=== PATIENT | female | born 1940 | race Caucasian/White ===

== ENCOUNTER → 2016-06-28 | Outpatient (CLI) | payer MEDICARE, BC | LOC: BHSO 09:59 | DX: F31.81 Bipolar II disorder (principal) ==

== ENCOUNTER → 2016-12-27 | Outpatient (CLI) | payer MEDICARE, BC | LOC: BHSO 09:59 | DX: F31.74 Bipolar disorder, in full remission, most recent episode manic (principal) ==

== ENCOUNTER → 2017-04-27 | Outpatient (CLI) | payer MEDICARE, BC | LOC: BHSO 10:43 | DX: F31.73 Bipolar disorder, in partial remission, most recent episode manic (principal) ==

== ENCOUNTER → 2017-10-09 | Outpatient (CLI) | payer MEDICARE, BC | LOC: MC.RAD 13:11 | DX: Z12.31 Encounter for screening mammogram for malignant neoplasm of breast (principal) ==

== ENCOUNTER → 2017-10-26 | Outpatient (CLI) | payer MEDICARE, BC ==
[~2017-10-26] MED LIST: ATIVAN 0.50.5 MG/TAB PO; LITHIUM 30300 MG/CAP PO; LITHIUM CA150 MG/CAP PO; MIRTAZAPINE7.5 MG PO; PLAVIX 75MG TAB75 MG PO; SYNTHROID0.075 MG/T PO
== END ==
LOC: BHSO 10:57
DX: F33.1 Major depressive disorder, recurrent, moderate (principal)
CPT/HCPCS: G0463

== ENCOUNTER → 2017-11-03 | Outpatient (REF) ==
[~2017-11-03] MED LIST changes: +ASPIRIN E.C. 8181 MG PO; +LAMICTAL 25MG T25 MG PO; +NICODERM C7 MG/PATCH TD; +OMNICEF 300MG300 MG PO; +SEROQUEL 2525 MG/TAB PO; +SYNTHROID0.05 MG/TA PO; +TYLENOL 325MG325 MG PO
[2017-11-03 14:11] LABS: BASO # 0.1 (0.0-0.2); BASO % 1.1 % (0.0-2.0); EOS # 0.4 (0.0-0.7); EOS % 4.8 % (0-4.0); GRAN # 5.7 (1.4-6.5); GRAN % 69.5 % (42.2-75.2); HEMOGLOBIN 11.9 g/dl (12.5-16.0); LYMPH # 1.4 (1.2-3.4); LYMPH % 17.6 % (20.0-51.0); MEAN CELL VOLUME 97 fl (80.0-100.0); MEAN CORPUSCULAR HEMOGLOBIN 31 pg (27.0-31.0); MEAN CORPUSCULAR HGB CONC 31 g/dl (33.0-37.0); MEAN PLATELET VOLUME 11.4 fl (7.4-10.4); MONO # 0.5 (0.1-0.6); MONO % 6.6 % (1.7-9.3); PLATELET COUNT 284 K/mm3 (130-400); REDCELL DISTRIBUTION WIDTH-CV 13.4 % (11.5-14.5)
[2017-11-03 14:38] LABS: ALBUMIN 3.5 gm/dL (3.5-5.0); BILIRUBIN,TOTAL 0.4 mg/dL (0.0-1.0); CALCIUM 11.3 mg/dL (8.4-10.2); CREATININE, serum 1.13 mg/dL (0.52-1.25); TOTAL PROTEIN 6.7 gm/dL (6.4-8.2)
== END ==
LOC: ZLAB.STJ 13:58 → EDBD 13:58
PROVIDERS: Family Medicine
DX: Z01.89 Encounter for other specified special examinations (principal)

== ENCOUNTER → 2017-11-07 | Outpatient (REF) | LOC: EDBD 13:48 → ZLAB.STJ 13:48 | DX: F03.90 Unspecified dementia, unspecified severity, without behavioral disturbance, psychotic disturbance, mood disturbance, and anxiety (principal) ==

== ENCOUNTER → 2017-11-07 | Outpatient (CLI) | payer MEDICARE, BC | LOC: EDBD 13:01 → BHSO 13:01 | DX: F31.81 Bipolar II disorder (principal) | CPT/HCPCS: G0463 ==

== ENCOUNTER → 2017-11-09 | Outpatient (REF) | LOC: ZLAB.STJ 09:51 | DX: Z01.89 Encounter for other specified special examinations (principal) ==

== ENCOUNTER → 2017-11-09 | Outpatient (REF) | LOC: ZLAB.WCH 10:04 | DX: Z01.89 Encounter for other specified special examinations (principal) ==

== ENCOUNTER → 2018-01-03 | Outpatient (CLI) | payer MEDICARE, BC | LOC: BHSO 10:39 | DX: F31.76 Bipolar disorder, in full remission, most recent episode depressed (principal) | CPT/HCPCS: G0463 ==

== ENCOUNTER 2018-02-18 08:43 | Emergency (ER) | payer MEDICARE, BC ==
[~2018-02-18] VITALS: Ht 162.6 cm; Wt 53.6 kg
[2018-02-18 08:47] VITALS: TEMP 97.9
[2018-02-18 09:34] LABS: COLLECTION METHOD CATHETER
[2018-02-18 09:38] LABS: BASO # 0.1 (0.0-0.2); BASO % 0.5 % (0.0-2.0); EOS # 0.2 (0.0-0.7); EOS % 1.7 % (0-4.0); GRAN # 8.6 (1.4-6.5); HEMATOCRIT 39.6 % (37.0-47.0); HEMOGLOBIN 12.5 g/dl (12.5-16.0); LYMPH # 0.8 (1.2-3.4); LYMPH % 7.8 % (20.0-51.0); MEAN CELL VOLUME 99 fl (80.0-100.0); MEAN CORPUSCULAR HEMOGLOBIN 31 pg (27.0-31.0); MEAN CORPUSCULAR HGB CONC 32 g/dl (33.0-37.0); MEAN PLATELET VOLUME 10.6 fl (7.4-10.4); MONO # 0.5 (0.1-0.6); MONO % 4.6 % (1.7-9.3); PLATELET COUNT 212 K/mm3 (130-400); RED BLOOD COUNT 3.99 M/mm3 (4.10-5.30); REDCELL DISTRIBUTION WIDTH-CV 12.9 % (11.5-14.5)
[2018-02-18 09:45] LABS: PH 7 (5-8); SQUAMOUS EPITHELIAL None Seen /hpf; URINE APPEARANCE Clear; URINE BACTERIA None Seen /hpf; URINE BILIRUBIN Negative (NEGATIVE); URINE BLOOD Negative (NEGATIVE); URINE COLOR Straw; URINE GLUCOSE Negative (NEGATIVE); URINE KETONE Negative (NEGATIVE); URINE LEUKOCYTE ESTERASE Negative (NEGATIVE); URINE NITRATE Negative (NEGATIVE); URINE PROTEIN(semi-quant) Negative (NEGATIVE); URINE RBC 0-2 /hpf; URINE UROBILINOGEN Negative (NEGATIVE)
[2018-02-18 09:47] LABS: ALANINE AMINOTRANSFERASE 38 U/L (9-52); ALBUMIN 4.3 gm/dL (3.5-5.0); ALKALINE PHOSPHATASE 87 U/L (50-136); ANION GAP 8 mmol/L (7-16); AST,SGOT 41 U/L (15-37); BILIRUBIN,TOTAL 0.4 mg/dL (0.0-1.0); BLOOD UREA NITROGEN 16 mg/dL (7-17); CALCIUM 10.6 mg/dL (8.4-10.2); CARBON DIOXIDE 25 mmol/L (22-30); CHLORIDE 108 mmol/L (98-107); CREATININE, serum 0.99 mg/dL (0.52-1.25); GLUCOSE 82 mg/dL (74-106); MAGNESIUM 2.3 mg/dL (1.6-2.3); PHOSPHOROUS 2.9 mg/dL (2.5-4.5); POTASSIUM 4.2 mmol/L (3.4-5.0); SODIUM 141 mmol/L (137-145); TOTAL PROTEIN 7.8 gm/dL (6.4-8.2)
[2018-02-18 10:00] LABS: TROPONIN-I < 0.012 ng/mL (0.000-0.034)
[2018-02-18 10:15] LABS: LITHIUM 0.5 mmol/L (0.6-1.2)
[2018-02-18 12:27] VITALS: BP 130/72; PULSE 78
== END 2018-02-18 12:29 | disposition home or self-care (01) ==
LOC: COL.ER 08:43
PROVIDERS: Emergency Medicine
DX: S22.089A Unspecified fracture of T11-T12 vertebra, initial encounter for closed fracture (principal); F31.9 Bipolar disorder, unspecified; I50.9 Heart failure, unspecified; K59.00 Constipation, unspecified; M54.5 Low back pain; F17.210 Nicotine dependence, cigarettes, uncomplicated; Z79.82 Long term (current) use of aspirin; Z86.73 Personal history of transient ischemic attack (TIA), and cerebral infarction without residual deficits; W01.0XXA Fall on same level from slipping, tripping and stumbling without subsequent striking against object, initial encounter
CPT/HCPCS: J2405; J7050

== ENCOUNTER → 2018-03-28 | Outpatient (CLI) | payer MEDICARE, BC | LOC: BHSO 10:44 | DX: F31.76 Bipolar disorder, in full remission, most recent episode depressed (principal) | CPT/HCPCS: G0463 ==

== ENCOUNTER 2018-04-11 09:30 | Outpatient (RCR) | payer MEDICARE, BC ==
[2018-04-12] MEDS ORDERED: ASPIRIN 81M81 MG/TA2 PO (16:52)
[2018-04-12] MEDS ORDERED: ATIVAN 1MG T1 MG/TAB PO (16:53)
[2018-04-12] MEDS ORDERED: LAMICTAL 100MG100 MG PO (16:53)
== END 2018-07-02 | disposition home or self-care (01) ==
LOC: WSC
DX: M54.40 Lumbago with sciatica, unspecified side (principal)
CPT/HCPCS: G8978-GP; G8979-GP

== ENCOUNTER 2018-04-12 15:46 | Emergency (ER) | payer MEDICARE, BC ==
[~2018-04-12] VITALS: Ht 162.6 cm; Wt 54.1 kg
[2018-04-12 15:50] VITALS: TEMP 98.5
[2018-04-12 16:24] LABS: BASO # 0.1 (0.0-0.2); BASO % 0.6 % (0.0-2.0); EOS % 0.2 % (0-4.0); GRAN # 10.9 (1.4-6.5); GRAN % 86.8 % (42.2-75.2); HEMATOCRIT 39.9 % (37.0-47.0); HEMOGLOBIN 12.7 g/dl (12.5-16.0); LYMPH # 0.9 (1.2-3.4); LYMPH % 7.5 % (20.0-51.0); MEAN CELL VOLUME 96 fl (80.0-100.0); MEAN CORPUSCULAR HEMOGLOBIN 31 pg (27.0-31.0); MEAN CORPUSCULAR HGB CONC 32 g/dl (33.0-37.0); MEAN PLATELET VOLUME 10.9 fl (7.4-10.4); MONO # 0.6 (0.1-0.6); MONO % 4.6 % (1.7-9.3); PLATELET COUNT 231 K/mm3 (130-400); RED BLOOD COUNT 4.17 M/mm3 (4.10-5.30)
[2018-04-12 16:38] LABS: ALBUMIN 4.4 gm/dL (3.5-5.0); BILIRUBIN,TOTAL 0.7 mg/dL (0.0-1.0); CALCIUM 11.8 mg/dL (8.4-10.2); CREATININE, serum 0.99 mg/dL (0.52-1.25); POTASSIUM 4.4 mmol/L (3.4-5.0); TOTAL PROTEIN 7.7 gm/dL (6.4-8.2)
[2018-04-12 16:52] LABS: LITHIUM 0.6 mmol/L (0.6-1.2)
[2018-04-12] MEDS ORDERED: ASPIRIN 81M81 MG/TA2 PO (16:52)
[2018-04-12] MEDS ORDERED: ATIVAN 1MG T1 MG/TAB PO (16:53)
[2018-04-12] MEDS ORDERED: LAMICTAL 100MG100 MG PO (16:53)
[2018-04-12 16:58] LABS: MAGNESIUM 2.1 mg/dL (1.6-2.3)
[2018-04-12 17:17] LABS: TSH w REFLEX 1.89 uIU/mL (0.465-4.680)
[2018-04-12 17:32] LABS: COLLECTION METHOD CATHETER
[2018-04-12 17:37] LABS: PH 7 (5-8); SQUAMOUS EPITHELIAL None Seen /hpf; URINE APPEARANCE Clear; URINE BACTERIA Rare /hpf; URINE BILIRUBIN Negative (NEGATIVE); URINE BLOOD Negative (NEGATIVE); URINE COLOR Straw; URINE GLUCOSE Negative (NEGATIVE); URINE KETONE Negative (NEGATIVE); URINE LEUKOCYTE ESTERASE Negative (NEGATIVE); URINE NITRATE Negative (NEGATIVE); URINE PROTEIN(semi-quant) Negative (NEGATIVE); URINE RBC 0-2 /hpf; URINE UROBILINOGEN Negative (NEGATIVE)
[2018-04-12 18:33] VITALS: BP 161/75; PULSE 81
== END 2018-04-12 21:44 | disposition short-term general hospital (02) ==
LOC: COL.ER 15:46
PROVIDERS: Emergency Medicine
DX: S09.90XA Unspecified injury of head, initial encounter (principal); S22.080A Wedge compression fracture of T11-T12 vertebra, initial encounter for closed fracture; M62.82 Rhabdomyolysis; R26.89 Other abnormalities of gait and mobility; Z91.81 History of falling; F03.90 Unspecified dementia, unspecified severity, without behavioral disturbance, psychotic disturbance, mood disturbance, and anxiety; Z86.73 Personal history of transient ischemic attack (TIA), and cerebral infarction without residual deficits; Z79.82 Long term (current) use of aspirin; W19.XXXA Unspecified fall, initial encounter
CPT/HCPCS: J3010; J7030

== ENCOUNTER → 2018-09-25 | Outpatient (CLI) | payer MEDICARE, BC ==
[~2018-09-25] MED LIST changes: +ASPIRIN 81M81 MG/TA2 PO; +ATIVAN 1MG T1 MG/TAB PO; +LAMICTAL 100MG100 MG PO
== END ==
LOC: MC.RAD 13:10
DX: Z12.31 Encounter for screening mammogram for malignant neoplasm of breast (principal)

== ENCOUNTER → 2018-09-28 | Outpatient (CLI) | payer MEDICARE, BC | LOC: BHSO 10:58 | DX: F31.76 Bipolar disorder, in full remission, most recent episode depressed (principal) | CPT/HCPCS: G0463 ==

== ENCOUNTER → 2019-03-27 | Outpatient (CLI) | payer MEDICARE, BC | LOC: BHSO 09:57 | DX: F31.72 Bipolar disorder, in full remission, most recent episode hypomanic (principal) | CPT/HCPCS: G0463 ==

== ENCOUNTER → 2019-04-30 | Outpatient (CLI) | payer MEDICARE, BC ==
[~2019-04-30] MED LIST changes: +MELATIN 3 MG-11 TAB PO; +NICODERM C21 MG/PATC TD; +NORVASC2.5 MG PO; +ZOFRAN ODT4 MG PO
== END ==
LOC: BHSO 15:22
DX: F31.74 Bipolar disorder, in full remission, most recent episode manic (principal)
CPT/HCPCS: G0463

== ENCOUNTER 2019-05-04 16:25 | Emergency (ER) | payer MEDICARE, BC ==
[~2019-05-04] VITALS: Ht 162.6 cm; Wt 48.6 kg
[~2019-05-04 16:25] MED LIST changes: -MELATIN 3 MG-11 TAB PO; -NICODERM C21 MG/PATC TD; -NORVASC2.5 MG PO; -ZOFRAN ODT4 MG PO
[2019-05-04 17:30] VITALS: BP 148/93; PULSE 76; TEMP 97.8
== END 2019-05-04 17:37 | disposition home or self-care (01) ==
LOC: COL.ER 16:25
DX: S01.81XA Laceration without foreign body of other part of head, initial encounter (principal); E03.9 Hypothyroidism, unspecified; F17.210 Nicotine dependence, cigarettes, uncomplicated; W20.8XXA Other cause of strike by thrown, projected or falling object, initial encounter; Y92.009 Unspecified place in unspecified non-institutional (private) residence as the place of occurrence of the external cause

== ENCOUNTER 2019-05-06 17:42 | Emergency (ER) | payer MEDICARE, BC ==
[~2019-05-06] VITALS: Ht 157.5 cm; Wt 54.5 kg
[2019-05-06 17:45] VITALS: TEMP 98.9
[2019-05-06 18:38] LABS: BASO # 0.1 (0.0-0.2); BASO % 0.7 % (0.0-2.0); EOS # 0.2 (0.0-0.7); EOS % 2.5 % (0-4.0); GRAN # 6.7 (1.4-6.5); HEMATOCRIT 41.1 % (37.0-47.0); HEMOGLOBIN 13.4 g/dl (12.5-16.0); LYMPH # 1.8 (1.2-3.4); LYMPH % 18.8 % (20.0-51.0); MEAN CELL VOLUME 95 fl (80.0-100.0); MEAN CORPUSCULAR HEMOGLOBIN 31 pg (27.0-31.0); MEAN CORPUSCULAR HGB CONC 33 g/dl (33.0-37.0); MEAN PLATELET VOLUME 11.4 fl (7.4-10.4); MONO # 0.5 (0.1-0.6); MONO % 5.8 % (1.7-9.3); PLATELET COUNT 226 K/mm3 (130-400); RED BLOOD COUNT 4.34 M/mm3 (4.10-5.30); REDCELL DISTRIBUTION WIDTH-CV 13.1 % (11.5-14.5)
[2019-05-06 18:48] LABS: ALBUMIN 4.8 gm/dL (3.5-5.0); BILIRUBIN,TOTAL 0.6 mg/dL (0.0-1.0); CALCIUM 12.1 mg/dL (8.4-10.2); CREATININE, serum 1.14 (0.52-1.25); POTASSIUM 4.2 mmol/L (3.4-5.0); TOTAL PROTEIN 8.6 gm/dL (6.4-8.2)
[2019-05-06] MEDS ORDERED: NORVASC2.5 MG PO (20:52)
[2019-05-07 03:56] LABS: COLLECTION METHOD CATHETER
[2019-05-07 04:15] LABS: TRICYCLIC ANTIDEPRESS URINE NEGATIVE
[2019-05-07 04:16] LABS: PH 6 (5-8); SQUAMOUS EPITHELIAL 0-2 /hpf; URINE APPEARANCE Clear; URINE BACTERIA Rare /hpf; URINE BILIRUBIN Negative (NEGATIVE); URINE BLOOD Negative (NEGATIVE); URINE COLOR Straw; URINE GLUCOSE Negative (NEGATIVE); URINE KETONE Negative (NEGATIVE); URINE LEUKOCYTE ESTERASE Negative (NEGATIVE); URINE NITRATE Negative (NEGATIVE); URINE PROTEIN(semi-quant) Negative (NEGATIVE); URINE RBC 0-2 /hpf; URINE UROBILINOGEN Negative (NEGATIVE)
[2019-05-07 07:26] LABS: ALBUMIN 3.7 gm/dL (3.5-5.0); BILIRUBIN,TOTAL 0.2 mg/dL (0.0-1.0); CREATININE, serum 0.95 (0.52-1.25); POTASSIUM 3.8 mmol/L (3.4-5.0); TOTAL PROTEIN 6.6 gm/dL (6.4-8.2)
--- NOTE | 2019-05-07 08:32 | NUR ---
nutrition services worker spoke with nurse and physician regarding discharge planning for patient. Patient lives alone and has Interim private pay caregivers. Worker contacted Denise, plastic surgery manager, at Dr Bartholomew's office and advised of concerning behaviors and ED visit. Dr Bartholomew has moved up patient's appointment to today at 11:30. Denise contacted caregiver, Amisha, and confirmed that she will transport home and bring to Dr Bartholomew's appointment today. Pyschiatrist has changed some medications which may have contributed to patient's confusional state. Son called ED nurse and is aware of the above information and states he will arrive to [place] in a couple of days. Patient will discharge home with caregivers today, from the ED.
[2019-05-07 08:58] VITALS: BP 151/91; PULSE 72
== END 2019-05-07 08:58 | disposition home or self-care (01) ==
LOC: COL.ER 17:42
PROVIDERS: Emergency Medicine; Family Medicine
DX: F31.9 Bipolar disorder, unspecified (principal); E86.0 Dehydration; I50.9 Heart failure, unspecified; F17.210 Nicotine dependence, cigarettes, uncomplicated; Z79.82 Long term (current) use of aspirin
CPT/HCPCS: J7030; J7120

== ENCOUNTER 2019-05-11 15:59 | Inpatient (IN) | payer MEDICARE, BC ==
[~2019-05-11] VITALS: Ht 162.6 cm; Wt 43.2 kg
[2019-05-11] VITALS (41 sets, daily range): BP systolic 140; BP diastolic 76; PULSE 86; TEMP 97.5; O2SAT 72–100
[~2019-05-11 15:59] MED LIST changes: +NORVASC2.5 MG PO
[2019-05-11 17:13] LABS: ARTERIAL BLD GAS O2 SATURATION 95.4 % (92-100); ARTERIAL BLD GAS TCO2 CT 26.3; ARTERIAL BLOOD GAS PCO2 42.2 mmHg (35-45); ARTERIAL BLOOD GAS PO2 83.2 mmHg (80-100); ARTERIAL BLOOD GAS pH 7.39 (7.35-7.45)
[2019-05-11 17:18] LABS: BASO # 0.1 (0.0-0.2); BASO % 0.4 % (0.0-2.0); EOS % 0.1 % (0-4.0); GRAN # 14.3 (1.4-6.5); GRAN % 84.7 % (42.2-75.2); HEMATOCRIT 41.6 % (37.0-47.0); HEMOGLOBIN 12.9 g/dl (12.5-16.0); LYMPH # 1.4 (1.2-3.4); LYMPH % 8.4 % (20.0-51.0); MEAN CELL VOLUME 98 fl (80.0-100.0); MEAN CORPUSCULAR HEMOGLOBIN 30 pg (27.0-31.0); MEAN CORPUSCULAR HGB CONC 31 g/dl (33.0-37.0); MEAN PLATELET VOLUME 11.5 fl (7.4-10.4); MONO % 5.9 % (1.7-9.3); PLATELET COUNT 243 K/mm3 (130-400); RED BLOOD COUNT 4.25 M/mm3 (4.10-5.30); REDCELL DISTRIBUTION WIDTH-CV 13.6 % (11.5-14.5)
[2019-05-11 17:29] LABS: ALBUMIN 4.3 gm/dL (3.5-5.0); BILIRUBIN,TOTAL 0.5 mg/dL (0.0-1.0); CALCIUM 12.4 mg/dL (8.4-10.2); CREATININE, serum 1.17 (0.52-1.25); POTASSIUM 3.9 mmol/L (3.4-5.0); TOTAL PROTEIN 7.8 gm/dL (6.4-8.2)
[2019-05-11 17:50] LABS: TRICYCLIC ANTIDEPRESS URINE NEGATIVE
[2019-05-11 17:57] LABS: MUCOUS Present /lpf; PH 7 (5-8); SQUAMOUS EPITHELIAL 0-2 /hpf; URINE APPEARANCE Hazy; URINE BACTERIA Moderate /hpf; URINE BILIRUBIN Negative (NEGATIVE); URINE BLOOD 1+ (NEGATIVE); URINE COLOR Yellow; URINE GLUCOSE Negative (NEGATIVE); URINE KETONE Negative (NEGATIVE); URINE LEUKOCYTE ESTERASE 3+ (NEGATIVE); URINE NITRATE Positive (NEGATIVE); URINE PROTEIN(semi-quant) Negative (NEGATIVE); URINE RBC 0-2 /hpf; URINE UROBILINOGEN Negative (NEGATIVE)
--- NOTE | 2019-05-11 20:00 | NUR ---
Received report from MARCOS Contreras.
[2019-05-11 21:38] LABS: CALCIUM 11.7 mg/dL (8.4-10.2); CREATININE, serum 1.22 (0.52-1.25); POTASSIUM 3.7 mmol/L (3.4-5.0)
--- NOTE | 2019-05-11 23:40 | NUR ---
Patient arrived to ICU room 6 at 2009 via ED stretcher. D5W is infusing to a site in the left forearm during arrival and patient is receiving O2 via nasal cannula at 4L. Upon initial assessment, patient's speech is confused although she does follow simple commands. Patient's initial BP is elevated, other vitals signs were within normal limits. Patient was 100% on 4L, so O2 was titrated to 2L and then off when saturation remained above 98%. Bruising is noted on her left hip area and her left upper arm; both bruises are yellowish in color. Patient's skin is dry and intact otherwise. Patient arrives wearing dentures, which are removed and oral care provided. A second IV site is initiated in the left wrist. Patient unable to answer questions regarding home medications at this time; will contact daughter Irma for clarification. Will continue to monitor.
[2019-05-11 23:49] LABS: THYROID STIMULATING HORMONE 0.46 uIU/mL (0.465-4.680)
[2019-05-12] VITALS (565 sets, daily range): BP systolic 114–169; BP diastolic 65–91; PULSE 88–116; TEMP 97.5–98.8; O2SAT 73–100
[2019-05-12 00:37] LABS: CALCIUM 11.3 mg/dL (8.4-10.2); CREATININE, serum 1.15 (0.52-1.25); POTASSIUM 3.7 mmol/L (3.4-5.0)
[2019-05-12 04:02] LABS: CREATININE, serum 1.11 (0.52-1.25); POTASSIUM 4.1 mmol/L (3.4-5.0)
--- NOTE | 2019-05-12 05:23 | NUR ---
Around 0400, patient became increasingly restless and agitated. Patient was removing gown and attempting to climb out of bed. Patient removed Coban wrap and IV in the left wrist. When attempting to reposition patient in bed, she began hitting and scratching at staff and yelling loudly. Trang notifed. Received orders for Ativan, which was administered. A sitter is currently present at the bedside. Will continue to monitor.
[2019-05-12 07:47] LABS: BASO # 0.1 (0.0-0.2); BASO % 0.3 % (0.0-2.0); EOS # 0.3 (0.0-0.7); EOS % 1.3 % (0-4.0); GRAN # 17.1 (1.4-6.5); HEMATOCRIT 40.1 % (37.0-47.0); HEMOGLOBIN 12.9 g/dl (12.5-16.0); LYMPH # 2.2 (1.2-3.4); LYMPH % 10.8 % (20.0-51.0); MEAN CELL VOLUME 97 fl (80.0-100.0); MEAN CORPUSCULAR HEMOGLOBIN 31 pg (27.0-31.0); MEAN CORPUSCULAR HGB CONC 32 g/dl (33.0-37.0); MEAN PLATELET VOLUME 11.1 fl (7.4-10.4); MONO # 0.9 (0.1-0.6); MONO % 4.3 % (1.7-9.3); PLATELET COUNT 229 K/mm3 (130-400); RED BLOOD COUNT 4.12 M/mm3 (4.10-5.30); REDCELL DISTRIBUTION WIDTH-CV 13.6 % (11.5-14.5)
[2019-05-12 07:56] LABS: CALCIUM 11.3 mg/dL (8.4-10.2); CREATININE, serum 1.13 (0.52-1.25); POTASSIUM 3.9 mmol/L (3.4-5.0)
--- NOTE | 2019-05-12 08:42 | NUR ---
Report given to MARCOS Sy.
[2019-05-12 09:37] LABS: CALCIUM 11.5 mg/dL (8.4-10.2); CREATININE, serum 1.13 (0.52-1.25); POTASSIUM 3.9 mmol/L (3.4-5.0)
--- NOTE | 2019-05-12 10:57 | NUR ---
Patient is currently resting in bed on her right side. She is wearing mits on her hands as it was reported that she was pulling INT sites out. She opens her eyes occasionally and to voice. She will speak but it is unintelligable. Had been using an external female catheter but as patient moves around frequently it has been ineffective so it has been removed and incontinence care is provided. She has even respirations. Is not alert and oriented. I did speak with daughter to obtain history and information on patient. Her daughter reports that she had independently traveled to see her in [place] over . Patient was reported to have been involved with dinner and was at her baseline. Daughter states that she had the decline after seeing psych and having her ativan discontinued and started on trazadone. It is reported that patient was started on lithium and ativan and this maintained her bipolar depression for some time. She does have interim home health providers where it is reported that she has a home health aide come to her house Monday-Monday and a nurse that sees patient Monday, Monday, Monday and they have noticed a change in patients demeanor since the medication change. Daughter reports that the home health aide noted that patient was in a "catatonic state" on evening where she was home sitting in the dark and wasnt speaking then Monday morning she was back to baseline. Daughter reports that patient told her that she will experience "episodes" where she feels that there is a film over her eyes and she is unable to walk or talk. These have been more frequent since . I did ask if the patient had a living will or power of contract attorney and the daughter reports that she is the financial power of contract attorney but she will check with the patients soap press feeder regarding medical. Daughter states that patient has wished to be a DNR but there is no documentation regarding this. The daughter wishes for patient to go to [facility] for rehab as the patient has been there before and done well. I did let social media marketing manager know this along with all the information provided.
--- NOTE | 2019-05-12 11:32 | NUR ---
SW received consult about patient status. Patient is currently unable to communicate fluidly. Patient is reported to have come in and was combative and physically violent toward staff. SW did not obtain an assessment. SW staffed with nurse about patient's mental history and gather information regarding family. Patient has an adult Dtr who resides in [facility], [place] . Sw made contact with DTR about patient. DTR has Financial POA and is attempting to get [facility] about Med-DPOA. DTR reports that the patient has a Nurse Aid (Amisha Alexander) from [facility] 5 days a week. Patient denied 24 hour care previously according to DTR. SEE Patient History on Mental Health Status-EXT. Patient also has an Adult son Gamaliel Johnston who is the EMR DPOA but the DTR reports that she can not get a hold of the brother. Phone Numbers Provided for Gamaliel Johnston at and . SW called all three numbers and the message box was full, not set up and no PII. No message left. DTR reports that the patient has been to [facility] in the past and they would choose that option again if possible. SW called [facility] to obtain a report, no answer from [facility]. SW left message. Additional information is unknown at this time. AMILCAR will continue to follow. Possible reports to APS. Infomation Handed off to Qc Manager.
[2019-05-12 11:41] LABS: COLLECTION METHOD CATHETER
--- NOTE | 2019-05-12 12:30 | NUR ---
Obained blood glucose level resulting in 55, did notify provider and due to sodium increase and blood glucose level the 1/2 NS is discontinued and D5 started at 75/hr.
[2019-05-12 12:55] LABS: CALCIUM 11.5 mg/dL (8.4-10.2); CREATININE, serum 1.1 (0.52-1.25); POTASSIUM 4.4 mmol/L (3.4-5.0)
--- NOTE | 2019-05-12 13:10 | NUR ---
Sodium has increased to 156, did notify provider, no changes to IV fluids.
--- NOTE | 2019-05-12 13:34 | NUR ---
Attempted to administer PO fluids to patient. Did give sip straight from a cup and she began to cough. Did try with a straw and patient was not comprehending what she was supposed to do.
[2019-05-12 14:04] LABS: PTH,INTACT 68.1 pg/mL (6.6-88.9)
--- NOTE | 2019-05-12 14:15 | NUR ---
Pt attempting to climb over side rails despite re-orientation strategies
[2019-05-12 15:31] LABS: CALCIUM 11.8 mg/dL (8.4-10.2); CREATININE, serum 1.19 (0.52-1.25)
--- NOTE | 2019-05-12 15:39 | NUR ---
MD Sofia notified of continued low Na level and continued alerted mental status. Orders recieved
[2019-05-12 18:55] LABS: CALCIUM 11.4 mg/dL (8.4-10.2); CREATININE, serum 1.18 (0.52-1.25); POTASSIUM 3.8 mmol/L (3.4-5.0)
--- NOTE | 2019-05-12 19:05 | NUR ---
Bedside report received from MARCOS Flannery
--- NOTE | 2019-05-12 20:00 | NUR ---
Patient is laying in bed resting with mitts on. She moves her arms and legs periodically and groans. Patient opens eyes to name, but does not respond to commands. Patient is found to have both legs kicked over the side of the bed and she is trying to move herself down to get up. Repositioned her in bed with assistance of MARCOS Silva. Pupils are reactive and equal. Assessment complete. Lungs are clear bilaterally with diminished bases. HR and rhythm are regular, patient is slightly tachycardic in the low 100's. Normal S1 and S2 heard. Bowel sounds active x4. Peripheral pulses are palpable. Patient is visibly shaking, but is warm to the touch and afebrile. Patient has multiple bruises on her hips, arms, and back. Nicotine patches are present on left shoulder. Patient has been incontinent of urine, patient given a bed bath and new sheets provided. Patient has no further needs at this time. Will continue to monitor. Call light within reach.
[2019-05-12 21:49] LABS: CALCIUM 11.2 mg/dL (8.4-10.2); CREATININE, serum 1.22 (0.52-1.25)
[2019-05-13] VITALS (828 sets, daily range): BP systolic 125–163; BP diastolic 78–90; PULSE 72–91; TEMP 97.8–98.9; O2SAT 66–100
--- NOTE | 2019-05-13 | NUR ---
Patient continues to rest in bed. Patient has been incontinent of urine, cleaned with personal cleansing cloths and new padding placed. Vitals obtained and remain stable. Patient does open her eyes to noise in the room and tracks this nurse as she walks around the bed. Patient asks "what happened". Explained that she was found at home confused and dehydrated. Patient nods her head in understanding. Assisted her with the blankets and repositioned for comfort. No further needs at this time. Will continue to monitor.
[2019-05-13 01:41] LABS: CALCIUM 11.2 mg/dL (8.4-10.2); CREATININE, serum 1.16 (0.52-1.25); POTASSIUM 4.2 mmol/L (3.4-5.0)
--- NOTE | 2019-05-13 03:45 | NUR ---
WHen going to reposition the patient, it is noted she is having abnormal flexion and extension with legs fully flexed and arms straight and unmoveable. Patient is not responsive to stimuli and she is visibly shaking. Notified ELIZABETH Costello who came to see the patient. Pupils are equal and reactive. Patient does not respond to any further stimuli. Order for STAT CT head.
--- NOTE | 2019-05-13 04:15 | NUR ---
Patient taken to CT by this nurse on portable monitor via bed with the assistance of Jose orthotic and prosthetic technician.
--- NOTE | 2019-05-13 04:24 | NUR ---
Return from CT at this time and patient placed back on unit monitoring equipment. Patient has started to be a little responsive to painful stimuli, but still remains postured.
[2019-05-13 04:38] LABS: ARTERIAL BLD GAS O2 SATURATION 96.3 % (92-100); ARTERIAL BLD GAS TCO2 CT 21.3; ARTERIAL BLOOD GAS BASE EXCESS -3.8 (-2-2); ARTERIAL BLOOD GAS HCO3 20.3 meq/L (22-26); ARTERIAL BLOOD GAS PCO2 33.9 mmHg (35-45); ARTERIAL BLOOD GAS PO2 83.7 mmHg (80-100)
--- NOTE | 2019-05-13 05:00 | NUR ---
Patient now fully extended in all extremities. Patient pulls against all movement and is rigid.
--- NOTE | 2019-05-13 06:00 | NUR ---
Patient is now responding to stimuli fully and opening her eyes. Patient is no longer extended and extremities can be moved.
[2019-05-13 06:10] LABS: BASO # 0.1 (0.0-0.2); BASO % 0.5 % (0.0-2.0); EOS # 0.3 (0.0-0.7); GRAN # 11.4 (1.4-6.5); GRAN % 76.3 % (42.2-75.2); HEMATOCRIT 41.6 % (37.0-47.0); HEMOGLOBIN 12.9 g/dl (12.5-16.0); LYMPH # 2.2 (1.2-3.4); LYMPH % 14.9 % (20.0-51.0); MEAN CELL VOLUME 101 fl (80.0-100.0); MEAN CORPUSCULAR HEMOGLOBIN 31 pg (27.0-31.0); MEAN CORPUSCULAR HGB CONC 31 g/dl (33.0-37.0); MEAN PLATELET VOLUME 12.3 fl (7.4-10.4); MONO # 0.8 (0.1-0.6); MONO % 5.6 % (1.7-9.3); PLATELET COUNT 242 K/mm3 (130-400); RED BLOOD COUNT 4.13 M/mm3 (4.10-5.30); REDCELL DISTRIBUTION WIDTH-CV 13.9 % (11.5-14.5)
[2019-05-13 06:26] LABS: CALCIUM 11.2 mg/dL (8.4-10.2); CREATININE, serum 1.16 (0.52-1.25); POTASSIUM 3.9 mmol/L (3.4-5.0)
--- NOTE | 2019-05-13 07:15 | NUR ---
Pt sleeping on side, respirations equal and unlabored, pt opens eyes to stimuli, does not follow commands. Vitals stable Tameka,nephrology social worker notified regarding inability to contact medical DPOA and inability for pt to make on decisions
--- NOTE | 2019-05-13 07:45 | NUR ---
Bedside report given to MARCOS Flannery
[2019-05-13 09:33] LABS: CALCIUM 10.9 mg/dL (8.4-10.2); CREATININE, serum 1.08 (0.52-1.25); POTASSIUM 3.7 mmol/L (3.4-5.0)
--- NOTE | 2019-05-13 09:40 | NUR ---
Hydroelectric Plant Technician was contacted by MARCOS Flannery who advised no one over the weekend was able to get in touch with patient's son but did get in touch with patient's daughter, Irma. AMILCAR reviewed DPOA-HC paperwork from 2016 that designates patient's sonGamaliel as DPOA-HC. AMILCAR attempted to contacted Gamaliel at [phone], which was the number listed on DPOA-HC paperwork and a man answered the phone stating SW had the wrong number. AMILCAR also called [phone] and could not leave a message because the mailbox is full. AMILCAR contacted Denise at [facility] who provided a phone number for patient's home health worker, Amisha ([phone]). Denise advised Amisha is listed as patient's Emergency Contact. Denise also faxed over current DPOA-HC paperwork that was completed in 2018 that designates patient's daughter, Irma as DPOA-HC. AMILCAR placed paperwork in patient chart. AMILCAR contacted Amisha who states patient's son, Gamaliel is aware patient is in hospital and the best number to contact for Gamaliel is [phone]. Amisha states she provides care to patient Monday-Monday 8:00am-4:00pm and also checks on her periodically. AMILCAR contacted Irma who reports she is concerned about her mother's rapid deterioration and stated her mother was able to travel to [place], [place] last month with no difficulties. Irma states she and Amisha believe there have been some issues with a recent medication change made by patient's psychiatrist. Irma states before patient was admitted to hospital, she was trying to set up Physical and Occupational Therapies with patient's home health agency. Irma states she is unsure what is going on with her brother, Gamaliel and worries he may be in some legal trouble. According to Irma, Gamaliel lives in [place], [place]. AMILCAR provided update to Prudencio RODRÍGUEZ about DPOA-HC. SW to continue to follow to ensure safe discharge.
[2019-05-13 12:22] LABS: CREATININE, serum 1.04 (0.52-1.25); POTASSIUM 3.8 mmol/L (3.4-5.0)
[2019-05-13 16:02] LABS: CALCIUM 10.9 mg/dL (8.4-10.2); CREATININE, serum 0.99 (0.52-1.25); POTASSIUM 4.4 mmol/L (3.4-5.0)
--- NOTE | 2019-05-13 16:15 | NUR ---
MD Sofia notified continued improvement in serum Sodium and that Altered mentation status remains the same - pt is moving all extremities. Orders recieved
[2019-05-13 17:44] LABS: CALCIUM, IONIZED, SERUM 1.69 mmol/L (1.19-1.41)
--- NOTE | 2019-05-13 19:15 | NUR ---
Bedside report received from MARCOS Flannery
--- NOTE | 2019-05-13 20:00 | NUR ---
Patient alert and restless in bed. She tries repeatedly to throw her legs over the side of the bed. Repositioned in the bed and made comfortable. Patient does follow command to squeeze hands, which are strong and equal, but does not followany other commands. Patients eyes do follow pen light when checking pupillary reflex. Assessment complete. Lungs are clear bilaterally with diminished bases. HR and rhythm are regular with normal S1 and S2. Patient is intermittently hypertensive, but when relaxed pressures are WNL. Bowel sounds active x4. Peripheral pulses are palpable in all extremities. No edema noted. Skin remains the same as previous night, no changes from that skin assessment. No further needs at this time. Will continue to monitor. Bed alarm on.
[2019-05-13 23:40] LABS: CALCIUM 10.9 mg/dL (8.4-10.2); CREATININE, serum 1.04 (0.52-1.25); POTASSIUM 3.9 mmol/L (3.4-5.0)
[2019-05-14] VITALS (653 sets, daily range): BP systolic 131–167; BP diastolic 71–97; PULSE 70–86; TEMP 97.5–98.9; O2SAT 79–100
--- NOTE | 2019-05-14 | NUR ---
Patient has been doing well. She has been remaining in bed and mostly sleeping through the night with position changes. Patient cleaned up as she was incontinent of urine and new bedding supplied. Vitals obtained and remain stable. Patient is showing no signs of distress or pain. Will continue to monitor. Bed alarm on.
--- NOTE | 2019-05-14 04:00 | NUR ---
Patient has remained stable. Vitals WNL. No signs of distress or pain. No current needs. Will continue to monitor. bed alarm on
--- NOTE | 2019-05-14 06:00 | NUR ---
Patient has been incontinent of urine. Patient cleaned with personal cleansing cloths and pads underneath her changed. Patient's purewick is replaced and pericare provided. Patient is much more restless at this time and is swinging her legs over the siderail and trying to pull herself up over the side rail. Ativan to be provided. Repositioned for comfort and warm blankets provided. No further needs at this time. Will continue to monitor. Call light within reach.
--- NOTE | 2019-05-14 07:11 | NUR ---
Bedside report given to MARCOS Rutherford
[2019-05-14 09:00] LABS: BASO # 0.1 (0.0-0.2); BASO % 0.5 % (0.0-2.0); EOS # 0.5 (0.0-0.7); EOS % 4.1 % (0-4.0); GRAN # 8.5 (1.4-6.5); GRAN % 69.9 % (42.2-75.2); HEMATOCRIT 41.2 % (37.0-47.0); LYMPH # 2.4 (1.2-3.4); LYMPH % 20.1 % (20.0-51.0); MEAN CELL VOLUME 98 fl (80.0-100.0); MEAN CORPUSCULAR HEMOGLOBIN 31 pg (27.0-31.0); MEAN CORPUSCULAR HGB CONC 32 g/dl (33.0-37.0); MEAN PLATELET VOLUME 12.3 fl (7.4-10.4); MONO # 0.6 (0.1-0.6); MONO % 5.1 % (1.7-9.3); REDCELL DISTRIBUTION WIDTH-CV 13.6 % (11.5-14.5)
[2019-05-14 09:02] LABS: PLATELET COUNT 107 K/mm3 (130-400)
[2019-05-14 09:36] LABS: CALCIUM 10.6 mg/dL (8.4-10.2); CREATININE, serum 0.96 (0.52-1.25); POTASSIUM 3.6 mmol/L (3.4-5.0)
--- NOTE | 2019-05-14 11:25 | NUR ---
Spinner Hydraulic attended clinical rounds with the team. Patient currently wearing mitts. SW to continue to follow to ensure safe discharge.
--- NOTE | 2019-05-14 13:16 | NUR ---
Svp contacted patient's daughter, Irma (ph#[phone]) to discuss discharge planning. SW reviewed PT/OT's recommendation for post acute rehab. PT's recommendation was for Nursing Home Facility. SW reviewed Medicare.gov list of facilities in [place] as Irma states she believes her mother would want to stay in town. Irma advised her mother has stayed at [facility] before. SW reviewed patient preference form and Irma advised [facility], but does not know which would be her preference at this time. Irma [facility] so she can ask them questions and make a decision on preference. SW placed form in chart. After the phone call with Irma, SW observed patient's son, Gamaliel Johnston (ph#[phone]) arrive. SW met with patient's son to review discharge plan and recommendations from PT/OT. Gamaliel states he is in agreeance with discharge plan and the two facilities Irma selected. AMILCAR contacted Iris at [facility] and left a message for Sukhwinder at [facility]. SW advised that Irma would like to be contacted. SW faxed referrals and will continue to follow to ensure safe discharge.
--- NOTE | 2019-05-14 16:10 | NUR ---
Application Architect Manager was contacted by Iris at [facility] who advised they would not be able to accept referral as they do not feel they can meet the level of care patient requires. SW to continue to follow.
--- NOTE | 2019-05-14 19:30 | NUR ---
Bedside report received from MARCOS Rutherford
--- NOTE | 2019-05-14 20:00 | NUR ---
Patient alert and sitting up in bed with the HOB elevated. Patient is requesting to eat her sandwich. Assisted her with this and giving sips of water between. Patient denies any pain and does not appear to be in any pain. Patient is confused and mumbles and slurs when she talks, but she is attempting to make full sentences and sometimes succeeds. Assessment complete. Lungs are clear bilaterally with diminished bases. HR and rthythm are regular with normal S1 and S2 heard. Bowel sounds active x4. Peripheral pulses are all palpable. Patient is following commands. After assessment this nurse helped with the last of her turkey sandwich. Patient did start to cough towards the last few bites as patient was looking very tired and dozing off. Repositioned patient in the bed on her side and given warm blankets. Patient quickly fell asleep. No further needs at this time. Will continue to monitor. Call light within reach. Bed alarm on.
[2019-05-15] VITALS (608 sets, daily range): BP systolic 116–148; BP diastolic 65–88; PULSE 66–82; TEMP 97.8–98.5; O2SAT 76–100
--- NOTE | 2019-05-15 | NUR ---
Patient sleeping peacefully in bed. Vitals obtained and remain stable. Patient has no other needs at this time. No signs of pain or distress. Will continue to monitor. Call light within reach and bed alarm on.
[2019-05-15 05:30] LABS: BASO % 0.4 % (0.0-2.0); EOS # 0.5 (0.0-0.7); EOS % 4.8 % (0-4.0); GRAN # 7.2 (1.4-6.5); GRAN % 69.7 % (42.2-75.2); HEMATOCRIT 41.2 % (37.0-47.0); HEMOGLOBIN 12.9 g/dl (12.5-16.0); LYMPH # 1.9 (1.2-3.4); LYMPH % 18.3 % (20.0-51.0); MEAN CELL VOLUME 97 fl (80.0-100.0); MEAN CORPUSCULAR HEMOGLOBIN 30 pg (27.0-31.0); MEAN CORPUSCULAR HGB CONC 31 g/dl (33.0-37.0); MEAN PLATELET VOLUME 12.4 fl (7.4-10.4); MONO # 0.7 (0.1-0.6); MONO % 6.4 % (1.7-9.3); PLATELET COUNT 205 K/mm3 (130-400); RED BLOOD COUNT 4.25 M/mm3 (4.10-5.30); REDCELL DISTRIBUTION WIDTH-CV 13.5 % (11.5-14.5)
--- NOTE | 2019-05-15 06:00 | NUR ---
Patient repositioned in bed. She continues to sleep. Purewick exchanged and pericare provided. Patient has no further needs. Will continue to monitor.
[2019-05-15 06:02] LABS: CALCIUM 10.6 mg/dL (8.4-10.2); CREATININE, serum 0.93 (0.52-1.25); POTASSIUM 3.9 mmol/L (3.4-5.0)
--- NOTE | 2019-05-15 07:10 | NUR ---
Bedside shift report received from MARCOS Hayes at this time. Patient is sleeping and not easily aroused. Full assessment completed. Vital signs stable. Bed in lowest position. Call light within reach. Fall precautions in place.
--- NOTE | 2019-05-15 07:15 | NUR ---
Bedside report given to MARCOS Paulino
--- NOTE | 2019-05-15 08:30 | NUR ---
Patient assisted with breakfast. Patient is awake, but confused. Patient repositioned and sitting straight up in bed to prepare to eat. Attempted to give patient applejuice with straw, patient able to drink about 2 oz, but coughs. Patient unable to drink without straw. Attempted to give patient very small bites (about a quarter of an inch) and swallows most but has residue left in mouth. Patient takes a very long time to chew and swallow. Telephone Lines Repairer notified of this. Orders received. Will discuss with physician in rounding about possible swallow eval.
--- NOTE | 2019-05-15 09:00 | NUR ---
Attempted to keep feeding patient, but patient unable to stay awake enough to eat at this time.
--- NOTE | 2019-05-15 10:45 | NUR ---
Patient remains confused and needs frequent reorientation. Patient asks about her son and if he's coming to visit. Patient reminded that her son left her room about 30 minutes ago as her son just came to visit her. He has since left the hospital. Patient asks "My son is in the hospital?" Patient reoriented that she herself is in the hospital in [place], [place] for dehydration and low sodium levels.
--- NOTE | 2019-05-15 11:00 | NUR ---
Since the patient unable to eat breakfast this morning, I attempted to give the patient Ensure. The patient took a very small sip by straw and states "It's awful" and did not want anymore.
--- NOTE | 2019-05-15 11:26 | NUR ---
Patient had an episode of emesis, bright yellow about 30cc. Yankeur used to suction out mouth. Patient not responsive for about 20-30 seconds, vital signs remain stable. When the patient comes to, she responds with incomprehensible speech. After about 1 minute, patient states "Get out of here" and "Leave me alone". Patient repositioned, bed in lowest position, call light within reach, side rails up x3, bed alarm on and functioning.
--- NOTE | 2019-05-15 12:30 | NUR ---
Irma called and updated on her mom's plan of care. Irma has no questions or concerns at this time, but was helpful with giving information on her mom's baseline health status. She states that her mom get's really confused when she is off her psychiatric medications. Irma states that her mom usually takes Greenway and Ativan, but doesn't know the doses. She also states that her Psychiatrist just recently changed her psychiatric medications around and believes that is what started her mom's decline in health.
--- NOTE | 2019-05-15 12:57 | NUR ---
Attempted to feed patient lunch. The patient coughed immmediately after drinking water. Attempted to give patient a very small bite of smashed sweet potato, patient held food in her mouth and when swallowing the patient began coughing. Physician made aware of this and stated she should remain NPO for now. Patient is not happy about this and continues to yell out "I want to eat!". Patient educated on inability to eat at this time because it is not safe and she could aspirate on her food. Patient does not understand at this time. Attempted to reorient patient as much as possible without success.
--- NOTE | 2019-05-15 19:54 | NUR ---
Bedside shift report given to MARCOS De Leon at this time. Patient's son Gamaliel and daughter in law are in the room at this time for report. Family updated on the days event and plan of care. Family has no questions or concerns at this time. Patient remains mostly confused. Bed in lowest position. Side rails up x4. Call light placed within reach. Bed alarm on and functioning.
--- NOTE | 2019-05-15 21:30 | NUR ---
Patient awake in room; occasionally heard yelling "I want food" or "I want ativan!" Attempted to re-orient patient and explained that until she is evaluated by speech we cannot give her food safely. Oral sponges were offered and patient accepted. Will continue to monitor.
[2019-05-16] VITALS (668 sets, daily range): BP systolic 118–150; BP diastolic 68–90; PULSE 69–82; TEMP 97.7–98.2; O2SAT 79–100
--- NOTE | 2019-05-16 00:30 | NUR ---
Patient drowsy but awakens with stimuli; speech is slow and difficult to understand, however, is able to follow basic commands and respond to some questions appropriately. VS stable; will continue to monitor.
[2019-05-16 05:26] LABS: BASO % 0.4 % (0.0-2.0); EOS # 0.3 (0.0-0.7); EOS % 2.4 % (0-4.0); GRAN # 7.6 (1.4-6.5); GRAN % 71.2 % (42.2-75.2); HEMATOCRIT 43.2 % (37.0-47.0); HEMOGLOBIN 13.3 g/dl (12.5-16.0); LYMPH # 1.9 (1.2-3.4); LYMPH % 17.5 % (20.0-51.0); MEAN CELL VOLUME 98 fl (80.0-100.0); MEAN CORPUSCULAR HEMOGLOBIN 30 pg (27.0-31.0); MEAN CORPUSCULAR HGB CONC 31 g/dl (33.0-37.0); MEAN PLATELET VOLUME 11.8 fl (7.4-10.4); MONO # 0.9 (0.1-0.6); MONO % 8.1 % (1.7-9.3); PLATELET COUNT 244 K/mm3 (130-400); REDCELL DISTRIBUTION WIDTH-CV 13.6 % (11.5-14.5)
[2019-05-16 05:36] LABS: CALCIUM 10.7 mg/dL (8.4-10.2); CREATININE, serum 0.95 (0.52-1.25); POTASSIUM 4.5 mmol/L (3.4-5.0)
--- NOTE | 2019-05-16 07:08 | NUR ---
Bedside report given to MARCOS De Leon. Patient care transfered.
--- NOTE | 2019-05-16 13:18 | NUR ---
Body Piercer attended clinical rounds with the team. Patient may transfer to the floor. Psych Consult ordered. Patient's son, Gamaliel at bedside. AMILCAR contacted Sukhwinder at [employer] and faxed updates. AMILCAR contacted patient's daughter, Irma to update that [facility] cannot accept referral. Irma states she is fine with patient going to [facility] if they will accept. Irma states she would like to be notified when patient discharges. SW to continue to follow.
--- NOTE | 2019-05-16 19:05 | NUR ---
RECEIVED REPORT FROM MARCOS PATTERSON. PT LYING IN BED AND APPEARS TO STARE OFF BUT IS ABLE TO REDIRECT EYES WHEN NAME CALLED. FOLLOWS SIMPLE COMMANDS AND ANSWERS ORIENTATION QUESTIONS CORRETLY BUT MAKES OCCASSIONAL CONFUSED STATEMENTS. PT CLEANED UP AND BRIEF CHANGED AT THIS TIME. CALL LIGHT WITHIN REACH. VSS. IV INFUSING WITHOUT DIFFICULTIES.
[2019-05-17] VITALS (177 sets, daily range): BP systolic 131–165; BP diastolic 50–97; PULSE 67–80; TEMP 97.5–98.3; O2SAT 65–100
[2019-05-17 07:51] LABS: CALCIUM 10.3 mg/dL (8.4-10.2); CREATININE, serum 0.91 (0.52-1.25); POTASSIUM 3.9 mmol/L (3.4-5.0)
[2019-05-17 16:00] LABS: PTH-RELATED PEPTIDE 0.5 pmol/L (())
[2019-05-18] VITALS (7 sets, daily range): BP systolic 119–145; BP diastolic 39–83; PULSE 65–70; TEMP 97.4–98
--- NOTE | 2019-05-18 04:52 | NUR ---
Patient noted to be confused at the beginning of the shift and stated her daughter talked with the pharmacy and that they would have her medication ready for her so I needed to go check with the pharmacy about her medication. Easily redirected to current situation. Spoke with ELIZABETH Mccartney about restarting her ativan d/t son stating she couldn't sleep without it. Sherrill ordered melatonin 3mg. This was noted to be effective, but when patient was given midnight medication, patient stated she had not slept at all. Patient denies pain. Incontinent cares provided by staff. Patient requires assistance with eating and drinking. Will continue to monitor patient.
[2019-05-18 08:21] LABS: CALCIUM 10.2 mg/dL (8.4-10.2); CREATININE, serum 0.91 (0.52-1.25); POTASSIUM 4.2 mmol/L (3.4-5.0)
--- NOTE | 2019-05-18 19:20 | NUR ---
Seen patient awake, sitting on bed. Patient has INT on right forearm. Denies any pain. Alert and oriented. Was able to answer where she was and her birthday. Will continue to monitor.
--- NOTE | 2019-05-18 21:00 | NUR ---
Informed patient of the medicines to be given. Body wipes done to patient. States that she felt comfortable and fresh after.
--- NOTE | 2019-05-19 01:24 | NUR ---
Report received from MARCOS Thomas. Patient up to the bathroom with staff assist when this nurse came on shift. Back to bed with no issues. Patient currently resting with eyes closed. Denies any further needs. Will continue to monitor.
[2019-05-19 03:56] VITALS: BP 119/74; PULSE 63; TEMP 97.5
[2019-05-19 07:18] LABS: CALCIUM 10.5 mg/dL (8.4-10.2); CREATININE, serum 0.94 (0.52-1.25); POTASSIUM 4.4 mmol/L (3.4-5.0)
[2019-05-19 08:00] VITALS: BP 102/80; PULSE 78
[2019-05-19 11:15] VITALS: BP 128/59; PULSE 62; TEMP 98.2
[2019-05-19 16:00] VITALS: BP 131/68; PULSE 64; TEMP 97.5
[2019-05-19 19:56] VITALS: BP 120/61; PULSE 72; TEMP 97.8
--- NOTE | 2019-05-19 20:05 | NUR ---
Shift assessment complete. Pt resting in bed, awake, a&o, cooperative c cares. Pt denies pain or other c/o at this time. INT patent. Tele in place. Pt denies further needs at this time. Call light in reach, bed alarm on. Will continue to monitor.
[2019-05-19 22:50] VITALS: BP 107/58; PULSE 64; TEMP 97.7
[2019-05-20 03:49] VITALS: BP 124/61; PULSE 64; TEMP 97.5
[2019-05-20 07:59] VITALS: BP 133/66; PULSE 60; TEMP 97.9
--- NOTE | 2019-05-20 09:58 | NUR ---
AMILCAR contacted and faxed updates to [facility]. SW to continue to follow.
[2019-05-20] MEDS ORDERED: NICODERM C21 MG/PATC TD ×2 (11:07→11:13)
[2019-05-20] MEDS ORDERED: MELATIN 3 MG-11 TAB PO (11:07)
[2019-05-20] MEDS ORDERED: ZOFRAN ODT4 MG PO (11:07)
[2019-05-20] MEDS ORDERED: NICODERM C7 MG/PATCH TD (11:15)
[2019-05-20 12:50] VITALS: BP 126/75; PULSE 76; TEMP 97.6
--- NOTE | 2019-05-20 14:35 | NUR ---
The patient is to tentatively discharge today, 05/20, pending [facility]'s referral. SW contacted and updated the patient's daughter, Irma. Irma was in agreeance to this plan. SW also explained the IM form to Irma. Irma verbalized understanding and gave SW her verbal consent. SW to continue to follow.
--- NOTE | 2019-05-20 15:53 | NUR ---
Sukhwinder, at [facility], reports that they are able to accept the patient for a skilled stay. AMILCAR informed the patient's daughter (Irma) and son (Gamaliel), via phone. The patient is to discharge today, 05/20, to [facility] for a skilled stay. Transportation was scheduled for around 1630, via [facility]. AMILCAR informed the patient's daughter and son via phone and his RN. They were all in agreeance to the time. No additional needs at this time.
--- NOTE | 2019-05-20 16:43 | NUR ---
PATIENT DC TO [facility] VIA [facility]AC[facility] TRANSPORT FROM [facility]. TRANSFER PACKET PROVIDED AT TIME OF DC. SON CRIS HOLLY IN ATTENDANCE AT TIME OF TRANSFER. LEFT FLOOR VIA WC. AT TIME OF TRANSFER PATIENT A/O X 4. DENIES C/O OF PAIN OR DISCOMFORT. ATTITUDE CALM AND PLEASANT
== END 2019-05-20 16:40 | DRG 917 ==
LOC: COL.ER 15:59 → ICU 18:08 → MEDICAL 05-17 11:19
PROVIDERS: Family Medicine; Nurse Practitioner Family; Physician Assistant; ADMIT Student in an Organized Health Care Education/Training Program
DX: T42.4X1A Poisoning by benzodiazepines, accidental (unintentional), initial encounter (principal); G92 Toxic encephalopathy; N39.0 Urinary tract infection, site not specified; E87.0 Hyperosmolality and hypernatremia; I50.32 Chronic diastolic (congestive) heart failure; E44.0 Moderate protein-calorie malnutrition; Z68.1 Body mass index [BMI] 19.9 or less, adult; E86.0 Dehydration; F31.9 Bipolar disorder, unspecified; I11.0 Hypertensive heart disease with heart failure; E83.52 Hypercalcemia; E87.6 Hypokalemia; B96.20 Unspecified Escherichia coli [E. coli] as the cause of diseases classified elsewhere; Z66 Do not resuscitate; E03.9 Hypothyroidism, unspecified; F17.210 Nicotine dependence, cigarettes, uncomplicated; Z86.73 Personal history of transient ischemic attack (TIA), and cerebral infarction without residual deficits; Z88.5 Allergy status to narcotic agent; Z88.1 Allergy status to other antibiotic agents
CPT/HCPCS: 99223-AI; 99231-AI; 99233-AI; 99239; A4216; J0360; J0696; J1200; J1630; J1644; J1815; J2060; J2405; J2550; J3480; J7030; J7070

== ENCOUNTER → 2019-05-24 | Outpatient (CLI) | payer MEDICARE, BC ==
[~2019-05-24] MED LIST changes: +MELATIN 3 MG-11 TAB PO; +NICODERM C21 MG/PATC TD; +ZOFRAN ODT4 MG PO
== END ==
LOC: BHSO 08:22
DX: F05 Delirium due to known physiological condition (principal)
CPT/HCPCS: G0463

== ENCOUNTER → 2019-06-05 | Outpatient (CLI) | payer MEDICARE, BC | LOC: BHSO 11:22 | DX: F41.1 Generalized anxiety disorder (principal) | CPT/HCPCS: G0463 ==

== ENCOUNTER 2019-07-14 09:30 | Emergency (ER) | payer MEDICARE, BC ==
[~2019-07-14] VITALS: Ht 162.6 cm; Wt 50.9 kg
[2019-07-14 09:35] VITALS: TEMP 99
[2019-07-14 10:25] VITALS: BP 123/83; PULSE 80
== END 2019-07-14 10:26 | disposition home or self-care (01) ==
LOC: COL.ER 09:30
DX: S80.02XA Contusion of left knee, initial encounter (principal); F31.9 Bipolar disorder, unspecified; F17.210 Nicotine dependence, cigarettes, uncomplicated; Z79.82 Long term (current) use of aspirin; W19.XXXA Unspecified fall, initial encounter; W22.8XXA Striking against or struck by other objects, initial encounter; Y92.009 Unspecified place in unspecified non-institutional (private) residence as the place of occurrence of the external cause

== ENCOUNTER → 2020-01-10 | Outpatient (CLI) | payer MEDICARE, BC | LOC: MC.RAD 13:26 | DX: Z12.31 Encounter for screening mammogram for malignant neoplasm of breast (principal) ==

== ENCOUNTER → 2020-03-10 | Outpatient (CLI) | payer MEDICARE, BC | LOC: BHSO 10:49 | DX: F31.76 Bipolar disorder, in full remission, most recent episode depressed (principal) | CPT/HCPCS: G0463 ==

== ENCOUNTER 2021-03-31 14:48 | Inpatient (IN) | payer MEDICARE, BC ==
[~2021-03-31] VITALS: Ht 162.6 cm; Wt 50.0 kg
[~2021-03-31 14:48] MED LIST changes: +AMOXICILLIN/CLA1 TA1 PO; +ARICEPT 5MG PO; +PROCARDIA XL90 MG PO
[2021-03-31 15:33] LABS: BASO # 0.1 K/mm3 (0.0-0.2); BASO % 0.2 % (0.0-2.0); EOS % 0.2 % (0-4.0); GRAN # 18.9 K/mm3 (1.4-6.5); HEMOGLOBIN 12.8 g/dl (12.5-16.0); LYMPH # 0.7 K/mm3 (1.2-3.4); LYMPH % 3.2 % (20.0-51.0); MEAN CELL VOLUME 98 fl (80.0-100.0); MEAN CORPUSCULAR HEMOGLOBIN 31 pg (27.0-31.0); MEAN CORPUSCULAR HGB CONC 32 g/dl (33.0-37.0); MONO # 1.2 K/mm3 (0.1-0.6); MONO % 5.8 % (1.7-9.3); PLATELET COUNT 244 K/mm3 (130-400); RED BLOOD COUNT 4.09 M/mm3 (4.10-5.30); REDCELL DISTRIBUTION WIDTH-CV 12.7 % (11.5-14.5)
[2021-03-31 15:40] LABS: COLLECTION METHOD CLEAN CATCH
[2021-03-31 15:44] LABS: ALBUMIN 3.3 gm/dL (3.4-4.8); BILIRUBIN,TOTAL 0.5 mg/dL (0.2-1.2); C-REACTIVE PROTEIN 27.5 mg/dL (0.00-0.50); CALCIUM 12.3 mg/dL (8.4-10.2); CREATININE, serum 1.57 mg/dL (0.57-1.11); POTASSIUM 4.5 mmol/L (3.5-4.5); TOTAL PROTEIN 7.8 gm/dL (6.2-8.1)
[2021-03-31 15:49] LABS: TROPONIN-I 0.013 ng/mL (0.00-0.033)
[2021-03-31 15:58] LABS: MUCOUS Present /lpf; PH 6 (5-8); SQUAMOUS EPITHELIAL None Seen /hpf; URINE APPEARANCE Hazy; URINE BACTERIA Occasional /hpf; URINE BILIRUBIN Negative (NEGATIVE); URINE BLOOD 1+ (NEGATIVE); URINE COLOR Yellow; URINE GLUCOSE Negative (NEGATIVE); URINE KETONE Negative (NEGATIVE); URINE LEUKOCYTE ESTERASE 3+ (NEGATIVE); URINE NITRATE Positive (NEGATIVE); URINE PROTEIN(semi-quant) 2+ (NEGATIVE); URINE UROBILINOGEN Negative (NEGATIVE)
[2021-03-31 22:00] VITALS: BP 152/67; PULSE 108; TEMP 99.5
--- NOTE | 2021-03-31 22:12 | NUR ---
PT ARRIVES TO UNIT @ 2144. PT IS ORIENTED ONLY TO SELF ET SPEECH IS SLURRED, O2 ON VIA NC @ 2L. IVF INFUSING INTO LEFT FA. PT TRANSFERRED TO BED FROM ER CART WITH SLIDE BOARD. PT IS WARM ET DIAPHORETIC. SKIN IS FLUSHED. PT IS CHANGED INTO YELLOW FALL RISK GOWN, BRACELET ET SOCKS. PT IS INCONTINENT OF LARGE AMOUNT OF URINE. PERICARE PROVIDED ET BRIEF CHANGED. PT EDUCATED ON FALL PRECAUTIONS ET CALL LIGHT. RESPIRATIONS ARE UNLABORED, CALL LIGHT WITHIN REACH.
[2021-03-31 23:31] VITALS: BP 115/58; PULSE 96; TEMP 99
[2021-04-01] VITALS (7 sets, daily range): BP systolic 102–156; BP diastolic 47–83; PULSE 75–93; TEMP 97.7–98.7
--- NOTE | 2021-04-01 01:14 | NUR ---
PT REPOSITIONED IN BED WITH 2 ASSIST. PT'S ABILITY TO FOLLOW DIRECTIONS ET SPEECH CLARITY HAS IMPROVED FROM ADMISSION. PT HAS BEEN GIVEN PUDDING TO EAT ET DID WELL WITH SET UP ASSISTANCE. PT'S SPEECH IS STILL SOMETIMES INCOMPREHENSIBLE. PT IS INCONTINENT OF URINE. PERICARE PROVIDED ET BRIEFS CHANGED. RESPIRATIONS UNLABORED. BED ALARM ON, CALL LIGHT WITHIN REACH.
[2021-04-01] MEDS ORDERED: REMERON 15M15 MG/TA1 (02:04)
--- NOTE | 2021-04-01 04:25 | NUR ---
PT RESTING QUIETLY IN BED @ THIS TIME. TRINI CHONG REPORTS THAT PT HAD USED CALL LIGHT APPROPRIATELY EARLIER TO USE BR. PT HAD WALKED 1 ASSIST TO BR WITH MINIMAL ASSISTANCE. PT WAS CONTINENT ET VOIDED IN TOILET. RESPIRATIONS UNLABORED. BED ALARM ON, CALL LIGHT WITHIN REACH. WILL CONTINUE TO MONITOR.
--- NOTE | 2021-04-01 05:26 | NUR ---
PT AWAKENED TO TAKE LEVOTHYROXINE. PT IS PARTIALLY ORIENTED TO SELF ET PLACE. SPEECH IS BECOMING MORE CLEAR, STILL SOMEWHAT SLURRED. PT STATES THAT SHE DOESN'T LIKE PLASTIC STRAWS BECAUSE OF THE POLLUTION THEY CAUSE, AFTER SHE TAKES A DRINK OF WATER. PT SWALLOWS WITH NO PROBLEMS. IVF INFUSING. PT DENIES OTHER NEEDS @ THIS TIME. RESPIRATIONS UNLABORED, O2 ON @ 2L NC. BED ALARM ON, CALL LIGHT WITHIN REACH.
[2021-04-01 06:47] LABS: MEAN CELL VOLUME 99 fl (80.0-100.0); MEAN CORPUSCULAR HGB CONC 32 g/dl (33.0-37.0); MEAN PLATELET VOLUME 11.8 fl (7.4-10.4); PLATELET COUNT 201 K/mm3 (130-400); REDCELL DISTRIBUTION WIDTH-CV 12.8 % (11.5-14.5)
[2021-04-01 06:49] LABS: HEMATOCRIT 32.7 % (37.0-47.0); HEMOGLOBIN 10.4 g/dl (12.5-16.0); MEAN CORPUSCULAR HEMOGLOBIN 32 pg (27.0-31.0)
[2021-04-01 07:02] LABS: CALCIUM 10.1 mg/dL (8.4-10.2); CREATININE, serum 1.28 mg/dL (0.57-1.11); POTASSIUM 4.1 mmol/L (3.5-4.5)
[2021-04-01 07:22] LABS: BAND 16 % (0-10); LYMPHOCYTE 8 % (20.0-51.0); NEUTROPHILS 75 % (42.0-75.2); PLATELET ESTIMATE NORMAL (NORMAL)
--- NOTE | 2021-04-01 07:23 | NUR ---
REPORT RECIEVED. NO COMPLAINTS OF PAIN OR DSYPNEA, NO SIGNS OR SYMPTOMS OF DISTRESS. RESTING IN BED. ASSISTED UP TO RESTROOM. CALL LIGHT WITHIN REACH
--- NOTE | 2021-04-01 13:10 | NUR ---
pt being evaluated by speech therapy at this time. Speech observing pt eating.
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
--- NOTE | 2021-04-01 15:13 | NUR ---
Jaqui, at [facility], reports that they are able to accept the patient; but would not be able to take over the weekend, due to transportation and ordering meds. She reports that they would be able to take the patient on Monday though.
--- NOTE | 2021-04-01 19:00 | NUR ---
RECIEVED CHANGE OF SHIFT REPORT FROM DAY SHIFT NURSE. INT IN PLACE. PATIENT INCONTINENT OF URINE, INCONTINENT CARE GIVEN, PATIENT TURNED SIDE TO SIDE, DENIES ANY NEEDS, COOPERATIVE.
[2021-04-02] VITALS (7 sets, daily range): BP systolic 113–150; BP diastolic 37–85; PULSE 64–102; TEMP 98–98.4
[2021-04-02 06:22] LABS: BASO % 0.3 % (0.0-2.0); EOS # 0.1 K/mm3 (0.0-0.7); EOS % 0.6 % (0-4.0); GRAN # 11.6 K/mm3 (1.4-6.5); GRAN % 85.9 % (42.2-75.2); HEMOGLOBIN 12.2 g/dl (12.5-16.0); LYMPH # 0.9 K/mm3 (1.2-3.4); LYMPH % 6.9 % (20.0-51.0); MEAN CELL VOLUME 99 fl (80.0-100.0); MEAN CORPUSCULAR HEMOGLOBIN 31 pg (27.0-31.0); MEAN CORPUSCULAR HGB CONC 31 g/dl (33.0-37.0); MEAN PLATELET VOLUME 11.9 fl (7.4-10.4); MONO # 0.8 K/mm3 (0.1-0.6); MONO % 5.6 % (1.7-9.3); PLATELET COUNT 227 K/mm3 (130-400); RED BLOOD COUNT 3.93 M/mm3 (4.10-5.30); REDCELL DISTRIBUTION WIDTH-CV 13.2 % (11.5-14.5)
[2021-04-02 06:35] LABS: CALCIUM 11.6 mg/dL (8.4-10.2); CREATININE, serum 1.42 mg/dL (0.57-1.11); POTASSIUM 4.3 mmol/L (3.5-4.5)
--- NOTE | 2021-04-02 07:02 | NUR ---
CHANGE OF SHIFT REPORT GIVEN TO DAY SHIFT NURSE, CRYSTAL RODRÍGUEZ.
[2021-04-02 07:19] LABS: MAGNESIUM 2.5 mg/dL (1.6-2.6)
--- NOTE | 2021-04-02 07:57 | NUR ---
REPORT RECIEVED FROM AIXA. NO SIGNS OR SYMPTOMS OF DISTRESS. NO COMPLAINTS OF PAIN OR DYSPNEA. CALL LIGHT WITHIN REACH
--- NOTE | 2021-04-02 14:09 | NUR ---
AMILCAR contacted and faxed updates to [facility] and [facility]. Jaqui, at [facility], confirms that the soonest they can take the patient is on Monday. Sukhwinder, at [facility], reports that they have declined the patient. SW attempted to contact the patient's daughter, Irma, to update. AMILCAR left her a voicemail.
--- NOTE | 2021-04-02 14:24 | NUR ---
The patient's daughter, Irma, returned AMILCAR's phone call. AMILCAR updated her on the referrals. Irma is agreeable for the patient to go to [facility] upon discharge.
--- NOTE | 2021-04-02 18:28 | NUR ---
PT RESTING COMFORTABLY IN BED. NO SIGNS OR SYPMTOMS OF DISTRESS. NO COMPLAINTS OF PAIN OR NAUSEA. REPORT GIVEN TO TRAIN ELECTRONIC TECHNICIAN.
[2021-04-03 03:18] VITALS: BP 143/71; PULSE 93; TEMP 98.7
--- NOTE | 2021-04-03 07:05 | NUR ---
rePORT RECIEVED FROM MARCOS FREY. PT RESTING IN BED. NO SIGNS OR SYMPTOMS OF DISTRESS. NO COMPLAINTS OF PAIN, NAUSEA, OR DYSPNEA. CALL LIGHT WITHIN REACH.
--- NOTE | 2021-04-03 08:10 | NUR ---
PT AWAKE AND DISORIENTED. REPORTS THAT SOMEONE NEEDS TO TAKE CARE OF THE CAT IN HER ROOM. SHE GAVE ME HER DEBIT CARD AND ASKED FOR ME TO GO TO THE STORE AND GET SOME TUNA AND WATER. DEBIT CARD PLACED BACK IN PT BELONGING BAG. PT RESTING QUIETLY NOW. BREAKFAST ORDERED. CALL LIGHT WITHIN REACH
--- NOTE | 2021-04-03 08:23 | NUR ---
PT ASSESSED. PHYSICAL THERAPY WORKING WITH PT. PT WALKS WITH WALKER DOWN THE CEBALLOS AND BACK TO ROOM. NO COMPLAINTS OF PAIN OR NAUSEA. NO SIGNS OF DISTRESS. CALL LIGHT WITHIN REACH
[2021-04-03 08:38] VITALS: BP 137/70; PULSE 103
[2021-04-03 14:22] LABS: BASO # 0.1 K/mm3 (0.0-0.2); BASO % 0.5 % (0.0-2.0); EOS # 0.1 K/mm3 (0.0-0.7); EOS % 0.6 % (0-4.0); GRAN # 12.5 K/mm3 (1.4-6.5); GRAN % 80.7 % (42.2-75.2); HEMATOCRIT 43.8 % (37.0-47.0); HEMOGLOBIN 13.3 g/dl (12.5-16.0); LYMPH # 1.5 K/mm3 (1.2-3.4); LYMPH % 9.6 % (20.0-51.0); MEAN CELL VOLUME 101 fl (80.0-100.0); MEAN CORPUSCULAR HEMOGLOBIN 31 pg (27.0-31.0); MEAN CORPUSCULAR HGB CONC 30 g/dl (33.0-37.0); MEAN PLATELET VOLUME 12.4 fl (7.4-10.4); MONO # 1.2 K/mm3 (0.1-0.6); MONO % 7.8 % (1.7-9.3); PLATELET COUNT 221 K/mm3 (130-400); RED BLOOD COUNT 4.33 M/mm3 (4.10-5.30); REDCELL DISTRIBUTION WIDTH-CV 13.7 % (11.5-14.5)
[2021-04-03 14:35] LABS: CALCIUM 12.3 mg/dL (8.4-10.2); CREATININE, serum 1.27 mg/dL (0.57-1.11); MAGNESIUM 2.5 mg/dL (1.6-2.6); POTASSIUM 3.8 mmol/L (3.5-4.5)
[2021-04-03 16:22] VITALS: BP 129/69; PULSE 110; TEMP 98.6
[2021-04-03 22:01] LABS: CREATININE, serum 1.33 mg/dL (0.57-1.11); POTASSIUM 4.2 mmol/L (3.5-4.5)
[2021-04-03 22:52] VITALS: BP 140/67; PULSE 91; TEMP 98
--- NOTE | 2021-04-04 02:26 | NUR ---
PT PULLING AT LINES, TO INCLUDE PUREWICK AND IV. AGGITATED AND NON COOPERATIVE. YISSEL BAH ORDERS PRN HALODOL IV, GIVEN.
--- NOTE | 2021-04-04 05:45 | NUR ---
INTERMITTENT AGGITATION OVERNIGHT. DOSES X 1 HALODOL IV. BED IN LOW POSITION. MONITORING.
[2021-04-04 06:43] LABS: BASO # 0.1 K/mm3 (0.0-0.2); BASO % 0.5 % (0.0-2.0); EOS # 0.2 K/mm3 (0.0-0.7); EOS % 1.4 % (0-4.0); GRAN # 12.8 K/mm3 (1.4-6.5); GRAN % 78.9 % (42.2-75.2); HEMATOCRIT 42.2 % (37.0-47.0); HEMOGLOBIN 13.3 g/dl (12.5-16.0); LYMPH # 1.9 K/mm3 (1.2-3.4); LYMPH % 11.6 % (20.0-51.0); MEAN CELL VOLUME 98 fl (80.0-100.0); MEAN CORPUSCULAR HEMOGLOBIN 31 pg (27.0-31.0); MEAN CORPUSCULAR HGB CONC 32 g/dl (33.0-37.0); MEAN PLATELET VOLUME 12.2 fl (7.4-10.4); MONO # 1.1 K/mm3 (0.1-0.6); MONO % 6.9 % (1.7-9.3); PLATELET COUNT 213 K/mm3 (130-400); RED BLOOD COUNT 4.31 M/mm3 (4.10-5.30); REDCELL DISTRIBUTION WIDTH-CV 13.7 % (11.5-14.5)
--- NOTE | 2021-04-04 07:00 | NUR ---
Report received from MARCOS Casas. PT in bed resting with mitts on, will continue to monitor.
[2021-04-04 07:02] LABS: CALCIUM 11.9 mg/dL (8.4-10.2); CREATININE, serum 1.26 mg/dL (0.57-1.11); POTASSIUM 3.7 mmol/L (3.5-4.5)
[2021-04-04 07:17] VITALS: BP 133/64; PULSE 88; TEMP 97.8
--- NOTE | 2021-04-04 08:00 | NUR ---
Assessment charted. Pt is alert and oriented to everything but the date, mitts removed and pt able to sit up, drink and feed self. Denies pain. IVF to RFA. Pt agreeable but did not want to take BP meds this am, ordered her breakfast. Will place ferrer per Dr. Powell orders and ocntinue to monitor with bed alarm on.
--- NOTE | 2021-04-04 10:11 | NUR ---
16french ferrer catheter placed per Dr. Powell orders, pt tolerated well, UA sent, wiaitng on labs to draw FENA.
[2021-04-04 10:30] LABS: COLLECTION METHOD CATHETER
[2021-04-04 10:57] LABS: MUCOUS Present /lpf; PH 6 (5-8); SQUAMOUS EPITHELIAL 0-2 /hpf; URINE APPEARANCE Clear; URINE BACTERIA None Seen /hpf; URINE BILIRUBIN Negative (NEGATIVE); URINE BLOOD Negative (NEGATIVE); URINE COLOR Straw; URINE GLUCOSE Negative (NEGATIVE); URINE KETONE Negative (NEGATIVE); URINE LEUKOCYTE ESTERASE Negative (NEGATIVE); URINE NITRATE Negative (NEGATIVE); URINE PROTEIN(semi-quant) 1+ (NEGATIVE); URINE RBC 0-2 /hpf; URINE UROBILINOGEN Negative (NEGATIVE)
[2021-04-04 12:13] VITALS: BP 142/71; PULSE 52; TEMP 98.4
[2021-04-04 12:38] LABS: CALCIUM 11.3 mg/dL (8.4-10.2); CREATININE, serum 1.47 mg/dL (0.57-1.11); POTASSIUM 4.3 mmol/L (3.5-4.5)
[2021-04-04 12:39] LABS: CREATININE, serum 0.62 mg/dL (0.57-1.11); FRACTIONAL EXCRETION OF NA+ 0.3 %
[2021-04-04 16:00] VITALS: BP 141/66; PULSE 94; TEMP 98.4
--- NOTE | 2021-04-04 18:26 | NUR ---
Pt has done well today, resting in bed, did not require any mitts today and has not needed any PRN agitation meds. IVF continues, ferrer draining lots of clear yellow urine, pt has taken in a lot of water over shift. Denies needs, will conitnue jeff onitor.
[2021-04-04 18:32] LABS: CALCIUM 10.5 mg/dL (8.4-10.2); CREATININE, serum 1.41 mg/dL (0.57-1.11); POTASSIUM 4.4 mmol/L (3.5-4.5)
--- NOTE | 2021-04-04 18:39 | NUR ---
Called OLVIN Hutchison with Hospitalist and reported current NA+ level, order received to hold fluids, will complete.
[2021-04-04 19:32] VITALS: BP 134/63; PULSE 91; TEMP 97.8
--- NOTE | 2021-04-04 22:08 | NUR ---
ALERT, OX1. PT SAT UP FOR DINNER CONSUMED ABOUT HALF. ENC TO CONTINUE TO DRINK WATER TO LOWER SODIUM LEVELS. PT CONTINUES TO BE CONFUSED AND IS ASKING FOR A CAB TO GO HOME. REORIENTATED OFTEN. BED ALARM ON. PM MEDS GIVEN. PT WAS PULLING AT BREAUX AND IV LINES. PRN SERQUIL FOR HS.
[2021-04-05] VITALS (7 sets, daily range): BP systolic 134–192; BP diastolic 59–92; PULSE 61–93; TEMP 97.4–98.2
[2021-04-05 01:22] LABS: CALCIUM 10.4 mg/dL (8.4-10.2); CREATININE, serum 1.61 mg/dL (0.57-1.11)
--- NOTE | 2021-04-05 01:25 | NUR ---
report sodium level of 149 to Kianna PA. Will resume fluids at lower rate.
[2021-04-05 06:34] LABS: HEMATOCRIT 41.8 % (37.0-47.0); MEAN CELL VOLUME 100 fl (80.0-100.0); MEAN CORPUSCULAR HEMOGLOBIN 31 pg (27.0-31.0); MEAN CORPUSCULAR HGB CONC 31 g/dl (33.0-37.0); PLATELET COUNT 251 K/mm3 (130-400); REDCELL DISTRIBUTION WIDTH-CV 13.9 % (11.5-14.5)
[2021-04-05 06:52] LABS: CALCIUM 10.9 mg/dL (8.4-10.2); CREATININE, serum 1.64 mg/dL (0.57-1.11); MAGNESIUM 2.3 mg/dL (1.6-2.6); POTASSIUM 4.1 mmol/L (3.5-4.5)
[2021-04-05 07:16] LABS: BAND 1 % (0-10); EOSINOPHIL 4 % (0-4)
[2021-04-05 07:17] LABS: LYMPHOCYTE 18 % (20.0-51.0); NEUTROPHILS 73 % (42.0-75.2); PLATELET ESTIMATE NORMAL (NORMAL)
[2021-04-05 07:18] LABS: HYPOCHROMIA 2+
--- NOTE | 2021-04-05 09:51 | NUR ---
PT IS 2 ASSIST WITH WALKER, IS GOING TO SNF, DOES NOT AMBULATE ON HER OWN. RISK OF AMBULATING GREATER THAN REWARD. PT DOES NOT NEED 02 AT THIS TIME.
--- NOTE | 2021-04-05 10:14 | NUR ---
Pt doing well this morning. She was alert and oriented for the most part. Knew where she was and why she was here as well as what month it is. Pt leaning to the left and continues to do so even after getting straightened up. Pt currently sitting up in the chair. IV removed as it was not working, OLVIN Cedeño notified, awaiting orders. Talked with pts daughter Irma on the phone and gave an update, she is hoping to talk to a dr. Pt refused to take the procardia and I was not able to convince her to. PCT assiting pt with a shower at this time
--- NOTE | 2021-04-05 13:05 | NUR ---
The hospitalist notified AMILCAR that the patient would be here at least another 2-3 days. AMILCAR notified and faxed updates to Jaqui at [facility].
--- NOTE | 2021-04-05 14:15 | NUR ---
Maryann RODRÍGUEZ contacted ID and informed of consult. I then contacted ID and he agreed with PICC placement. He requested that I contact Dr. Miner. I contacted MARCOS Esposito and she will visit with Dr. Miner in regard to PICC placement. Patient is a very difficlt stick.
--- NOTE | 2021-04-05 15:40 | NUR ---
Pt off the floor for CT
[2021-04-05 19:18] LABS: CALCIUM 9.6 mg/dL (8.4-10.2); CREATININE, serum 1.48 mg/dL (0.57-1.11); POTASSIUM 4.2 mmol/L (3.5-4.5)
--- NOTE | 2021-04-06 00:34 | NUR ---
ALERT TO SELF. ATE DINNER WELL, ENC TO CONT TO DRINK WATER. IV FLUIDS/ANTIBOTICS RUNNING. PT DENIES PAIN, SOA OR DIZZY. BREAUX CATH TO DD, ATTEMPTS TO GET UP TO GO TO BR, REMINDED ABOUT BREAUX BEING IN. SEEMS A LITTLE MORE CLEAR IN THE HEAD TONIGHT. SLIGHTLY AGITATED. PM MEDS GIVEN. CALL LIGHT WI REACH. BED ALARMS ON.
[2021-04-06 00:47] VITALS: BP 154/70; PULSE 74; TEMP 97.9
[2021-04-06 02:11] LABS: CALCIUM 9.3 mg/dL (8.4-10.2); CREATININE, serum 1.45 mg/dL (0.57-1.11)
[2021-04-06 05:15] VITALS: BP 137/70; PULSE 76; TEMP 97.7
--- NOTE | 2021-04-06 06:01 | NUR ---
PT RESTED THROUGH THE NIGHT WITHOUT INCIDENT. FLUIDS GOING. PT DRINK SEVERAL GLASSES OF WATER OVERNIGHT. BREAUX DRAINING CLEAR YELLOW URINE. AM MEDS GIVEN.
--- NOTE | 2021-04-06 06:40 | NUR ---
awake resting in bed, bedside shift report received from MARCOS Casas, breakfast ordered
[2021-04-06 07:06] LABS: HEMOGLOBIN 11.2 g/dl (12.5-16.0); MEAN CELL VOLUME 98 fl (80.0-100.0); MEAN CORPUSCULAR HEMOGLOBIN 31 pg (27.0-31.0); MEAN CORPUSCULAR HGB CONC 31 g/dl (33.0-37.0); MEAN PLATELET VOLUME 12.7 fl (7.4-10.4); PLATELET COUNT 210 K/mm3 (130-400); RED BLOOD COUNT 3.66 M/mm3 (4.10-5.30); REDCELL DISTRIBUTION WIDTH-CV 13.8 % (11.5-14.5)
[2021-04-06 07:10] LABS: HEMATOCRIT 35.8 % (37.0-47.0)
[2021-04-06 07:22] LABS: CALCIUM 9.3 mg/dL (8.4-10.2); CREATININE, serum 1.42 mg/dL (0.57-1.11); POTASSIUM 3.8 mmol/L (3.5-4.5)
[2021-04-06 07:54] LABS: BAND 8 % (0-10); EOSINOPHIL 3 % (0-4); LYMPHOCYTE 15 % (20.0-51.0); METAMYELOCYTE 1 % (0-0); NEUTROPHILS 71 % (42.0-75.2); PLATELET ESTIMATE NORMAL (NORMAL)
[2021-04-06 08:00] VITALS: BP 131/67; PULSE 84; TEMP 98
--- NOTE | 2021-04-06 10:30 | NUR ---
in bed watching TV, full assessment completed, see interventions for further info, denies needs at this time
[2021-04-06 12:00] VITALS: BP 120/66; PULSE 68; TEMP 97.7
--- NOTE | 2021-04-06 12:40 | NUR ---
Dr Faria and care team in to see patient
--- NOTE | 2021-04-06 12:57 | NUR ---
sitting up in recliner waiting for lunch
--- NOTE | 2021-04-06 13:29 | NUR ---
AMILCAR faxed updates to Jaqui at [facility].
--- NOTE | 2021-04-06 14:53 | NUR ---
resting in bed with lights off, looking at TV
[2021-04-06 15:27] VITALS: BP 136/69; PULSE 66; TEMP 97.5
--- NOTE | 2021-04-06 17:00 | NUR ---
resting in bed waiting on supper
--- NOTE | 2021-04-06 18:57 | NUR ---
bedside shift report given to MARCOS Vásquez
[2021-04-06 19:49] VITALS: BP 149/65; PULSE 69; TEMP 97.8
[2021-04-07] VITALS (7 sets, daily range): BP systolic 105–156; BP diastolic 42–94; PULSE 66–118; TEMP 97.6–98.6
--- NOTE | 2021-04-07 01:59 | NUR ---
PT IS REPOSITIONED IN BED WITH 2 ASSIST. PT IS PARTIALLY ORIENTED TO PLACE ET SELF ONLY. FREQUENT ATTEMPTS MADE TO RE-ORIENT PT, PT QUICKLY FORGETS. SPEECH IS SLURRED. BREAUX CATHETER DRAINING PALE YELLOW CLEAR URINE. IVF INFUSING INTO RIGHT FA. PT DENIES PAIN WHEN ASKED. PT REPEATEDLY ASKS ABOUT LEVOTHYROXINE, EXPLAINED TO PT THAT IT IS NOT YET TIME TO TAKE IT. RESPIRATIONS UNLABORED. BED ALARM ON, CALL LIGHT WITHIN REACH.
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
--- NOTE | 2021-04-07 03:55 | NUR ---
PT RESTING QUIETLY IN BED. IVF INFUSING. BREAUX CATH DRAINING. RESPIRATIONS UNLABORED. BED ALARM ON, CALL LIGHT WITHIN REACH.
--- NOTE | 2021-04-07 05:46 | NUR ---
LAB IS HERE TO DRAW BLOOD. PT IS COOPERATIVE, PARTIALLY ORIIENTED. STATES THAT SHE KNOWS SHE'S IN THE HOSPITAL. PT TAKES PO INTAKE ET MEDICATIONS WITH NO PROBLEMS. BREAUX CATHETER IS DRAINING PALE YELLOW CLEAR URINE. IVF INFUSING. BED ALARM ON, CALL LIGHT WITHIN REACH.
[2021-04-07 07:18] LABS: HEMATOCRIT 37.6 % (37.0-47.0); HEMOGLOBIN 11.8 g/dl (12.5-16.0); MEAN CELL VOLUME 98 fl (80.0-100.0); MEAN CORPUSCULAR HEMOGLOBIN 31 pg (27.0-31.0); MEAN CORPUSCULAR HGB CONC 31 g/dl (33.0-37.0); MEAN PLATELET VOLUME 11.9 fl (7.4-10.4); PLATELET COUNT 299 K/mm3 (130-400); RED BLOOD COUNT 3.83 M/mm3 (4.10-5.30); REDCELL DISTRIBUTION WIDTH-CV 13.7 % (11.5-14.5)
[2021-04-07 07:21] LABS: CALCIUM 10.2 mg/dL (8.4-10.2); CREATININE, serum 1.28 mg/dL (0.57-1.11); POTASSIUM 4.3 mmol/L (3.5-4.5)
[2021-04-07 07:59] LABS: BAND 1 % (0-10); LYMPHOCYTE 16 % (20.0-51.0); METAMYELOCYTE 1 % (0-0); NEUTROPHILS 80 % (42.0-75.2); NUCLEATED RED BLOOD CELL 1 (0-6); PLATELET ESTIMATE NORMAL (NORMAL)
--- NOTE | 2021-04-07 10:00 | NUR ---
Pt doing okay today. She is not clear as to where she is or what month it is. She keeps talking about cats. She does say that she doesn't have any pain at this time. Mepilex to her coccyx. Pt was incotinent of stool. Bed alarm on
--- NOTE | 2021-04-07 14:33 | NUR ---
Attempted to contact stacey Solis, who is [facility] in regard to PICC placement. 2 voice mail messages left. no return phone call. I will attempt to call in am. primary care nurse informed.
--- NOTE | 2021-04-07 16:34 | NUR ---
AMILCAR faxed updates to Jaqui at [facility].
--- NOTE | 2021-04-07 19:45 | NUR ---
PT'S BED ALARM GOES OFF. PT IS AGITATED, TRYING TO CLIMB OVER BED RAILS. PT DOES NOT ALLOW THIS NURSE TO HELP HER, STATES THAT SHE IS GOING TO HER BEDROOM. ATTEMPTS MADE TO RE-ORIENT PT UNSUCCESSFUL, PT CANNOT COMPREHEND. PT IS ASSISTED TO WALK AROUND ROOM, GAIT IS UNSTEADY. PT DENIES NEED TO USE BR. PT THEN GETS BACKS INTO BED OVER SIDE RAILS. IS INCONTINENT OF STOOL. PT IS CLEANED, BRIEFS ET GOWN CHANGED, REPOSITIONED IN BED. DAYSHIFT NURSE HAD LOST IV ACCESS. PT NO LONGER HAS IV, HAS BEEN KNOWN TO BE DIFFICULT TO START IVs ON. Ryan SHIELDS APRN NOTIFIED. PREPRINT ANALYST CALLED ET WILL MAKE ATTEMPT TO INSERT IV. BED ALARM IS ON, CALL LIGHT WITHIN REACH.
--- NOTE | 2021-04-07 20:45 | NUR ---
STRATEGIC DEBRIEFING OFFICER TAMAR IS HERE ET HAS SUCCESSFULLY STARTED PERIPHERAL IV IN PT'S LEFT FA. IVF RESTARTED. NO REDNESS/EDEMA SEEN. SITE IS WRAPPED WITH JILLIAN WRAP FOR PROTECTION. PT DENIES PAIN. PT IS DROWSY, CALM ET COOPERATIVE. SPEECH IS SLURRED. PT IS GIVEN FRESH ICE WATER TO DRINK ET ASSISTED TO WIPE FACE WITH WET WASHCLOTH PER PT REQUEST. RESPIRATIONS UNLABORED. CALL LIGHT WITHIN REACH.
--- NOTE | 2021-04-07 23:48 | NUR ---
PT'S BED ALARM GOES OFF, PT IS ATTEMPTING TO LEAVE BED ON BY SELF. PT STATES THAT SHE WAS DREAMING THAT SHE COULDN'T WAKE ANYONE UP THEN NEEDED TO GO TO BR. PT ASSISTED TO BR WITH 1 ASSIST ET WALKER, DOES NOT ALWAYS FOLLOW DIRECTIONS BUT IS PLEASANT ET COOPERATIVE. PT IS INCONTINENT OF A MODERATE AMOUNT OF LOOSE BROWN BM, STATES THAT SHE HAD HER ANTIBIOTICS TODAY. PT VOIDS INTO TOILET ET THEN HAS ANOTHER SMALL LOOSE BM. PERICARE PROVIDED ET PT ASSISTED BACK INTO BED. IVF INFUSING. RESPIRATIONS UNLABORED. BED ALARM ON, CALL LIGHT WITHIN REACH.
[2021-04-08 00:11] VITALS: BP 131/60; PULSE 72; TEMP 97.6
--- NOTE | 2021-04-08 02:13 | NUR ---
PT IS SEEN ATTEMPTING TO LEAVE BED BY HERSELF WHEN CHECKED ON. PT STATES THAT SHE NEEDS TO USE BR, CONTINUES TO HAVE INCONTINENT LOOSE STOOLS IN BRIEF ET TOILET. PT DENIES PAIN. PT ASSISTED BACK INTO BED WITH 1 ASSIST AFTER BRIEF IS CHANGED ET PERICARE COMPLETED, REQUESTS ICE CREAM TO EAT. ATTEMPTED TO EXPLAIN TO PT THAT ICE CREAM MAY WORSEN DIARRHEA, PT CONTINUES TO REFUSE ET ASKS FOR ICE CREAM. ICE CREAM IS GIVEN. PT SITS UP IN BED TO EAT ET DRINK WATER. IVF INFUSING. BED ALARM ON, CALL LIGHT WITHIN REACH.
--- NOTE | 2021-04-08 03:14 | NUR ---
PT APPEARS TO BE SLEEPING IN BED. RESPIRATIONS UNLABORED. PT HAS HAD PUDDING FOR A SNACK @ MIDNIGHT ET CHOCOLATE MILK. BREAUX CATHETER DRAINING YELLOW URINE. BED ALARM IS ON, CALL LIGHT WITHIN REACH.
[2021-04-08 03:49] VITALS: BP 119/66; PULSE 83; TEMP 98.4
[2021-04-08 07:00] LABS: BASO # 0.1 K/mm3 (0.0-0.2); BASO % 0.5 % (0.0-2.0); EOS # 0.4 K/mm3 (0.0-0.7); GRAN # 7.6 K/mm3 (1.4-6.5); GRAN % 68.5 % (42.2-75.2); HEMOGLOBIN 11.5 g/dl (12.5-16.0); LYMPH # 2.3 K/mm3 (1.2-3.4); LYMPH % 20.8 % (20.0-51.0); MEAN CELL VOLUME 98 fl (80.0-100.0); MEAN CORPUSCULAR HEMOGLOBIN 31 pg (27.0-31.0); MEAN CORPUSCULAR HGB CONC 32 g/dl (33.0-37.0); MEAN PLATELET VOLUME 11.4 fl (7.4-10.4); MONO # 0.5 K/mm3 (0.1-0.6); MONO % 4.8 % (1.7-9.3); PLATELET COUNT 325 K/mm3 (130-400); RED BLOOD COUNT 3.71 M/mm3 (4.10-5.30); REDCELL DISTRIBUTION WIDTH-CV 13.6 % (11.5-14.5)
[2021-04-08 07:01] LABS: HEMATOCRIT 36.2 % (37.0-47.0)
[2021-04-08 07:06] LABS: ALBUMIN 2.5 gm/dL (3.4-4.8); BILIRUBIN,TOTAL 0.1 mg/dL (0.2-1.2); CALCIUM 10.1 mg/dL (8.4-10.2); CREATININE, serum 1.18 mg/dL (0.57-1.11); VALPROIC ACID (DEPAKENE) 38.6 ug/mL (43.5-90.5)
--- NOTE | 2021-04-08 07:47 | NUR ---
pt assisted to the bathroom. She did use call light, but stated to get up before I got to her room. Bed alarm sounded. Pt reports not having any pain. She does continue to have loose/soft stool and is incontinent. Assisted pt getting cleaned up and then assisted her to her chair. Ordered her breakfast. Chair alarm on and call light within reach
--- NOTE | 2021-04-08 08:02 | NUR ---
I visited with patient's daughter, Irma, in regard to PICC placement. She requested time to think about this procedure. She will call back in 2 to 3 hours regarding decision. Primary care nurse informed.
--- NOTE | 2021-04-08 09:25 | NUR ---
Initial visit; Patient thanked Pillow Filler for looking in on her and offering God's blessings.
[2021-04-08 09:36] VITALS: BP 127/60; PULSE 65; TEMP 98.3
[2021-04-08 12:56] VITALS: BP 142/64; PULSE 58; TEMP 98.2
--- NOTE | 2021-04-08 13:00 | NUR ---
Pt continues to have loose stool, pudding consistency. Sabra with [facility] talked with daughter about PICC line, informed she would think about it and call us back, have not had a return call. Social work has attempted to call daughter in regarding to transferring pt to [facility]. Pt not having any pain complaints, tolerating PO
[2021-04-08] MEDS ORDERED: DEPAKOTE ER 25250 MG PO (13:39)
[2021-04-08] MEDS ORDERED: SEROQUEL 2525 MG/TAB PO (13:41)
[2021-04-08] MEDS ORDERED: LEVOXYL0.05 MG PO (13:41)
[2021-04-08] MEDS ORDERED: ROCEPHIN VIA1 G/VIAL IM (13:44)
--- NOTE | 2021-04-08 16:03 | NUR ---
Pt transferred to [facility], report called
--- NOTE | 2021-04-08 16:08 | NUR ---
The PA notified AMILCAR that the hospitalist is ready to discharge the patient today. The patient is going to need one more dose of an IM injection of Rocephin tomorrow. AMILCAR notified Jaqui at [facility]. Jaqui reports that they are able to administer the injection tomorrow. AMILCAR attempted to contact the patient's daughter, Irma, four times to update. AMILCAR left her voicemails. AMILCAR then contacted the law office that Irma works at. Irma was in a preceeding with a client and packaging manager. Irma sounded upset. She reports that she was hoping there would be more time to get things arranged for the patient and to have her caregiver bring the patient's clothes. She asked if there was anyway to delay the discharge. AMILCAR discussed how the patient is medically stable and ready to discharge. AMILCAR informed her of the IM form and how the patient has a right to appeal the discharge. Irma verbalized understanding. Irma reports that she really does not have time to talk and needs to get back to the preceeding. She reports that she is fine with the patient going to [facility] today and asks that SW talk to her son, Shon, and provide him with all the updates. AMILCAR attempted to review the IM form with Irma. Irma requests that SW going over the IM with her son and gives consent that it okay for AMILCAR to read this to him. AMILCAR was then transferred to Irma's son, Shon. Shon also works in the law office. AMILCAR provided him with an update. Shon is also agreeable for the patient to go to [facility]. He just asks that [facility] contact the law office or his mother once she gets there and gets settled in. He states that the patient's friend/caregiver, Amisha, will be coming to [facility] tomorrow to drop off the patient's clothes and belongings. AMILCAR read the IM form outloud to Shon. Shon verbalized understanding and gave AMILCAR approval to sign the form on his behalf. He would like a copy emailed to him. AMILCAR emailed him a copy. AMILCAR contacted and updated Jaqui at [facility] on the above. She reports that they will contact Shon or Irma, once the patient gets settled in. The patient discharge today, 11/18, to [facility] for a skilled stay. Transportation was provided by [facility]. AMILCAR informed Shon and the patient's RN of the tentative transport time. They were both agreeable to the time. No additional needs at this time.
== END 2021-04-08 15:40 | DRG 871 ==
LOC: COL.ER 14:48 → SURG 17:48
PROVIDERS: Family Medicine; Physician Assistant; Student in an Organized Health Care Education/Training Program; ADMIT Internal Medicine
DX: A41.51 Sepsis due to Escherichia coli [E. coli] (principal); G93.41 Metabolic encephalopathy; I50.32 Chronic diastolic (congestive) heart failure; N39.0 Urinary tract infection, site not specified; N17.9 Acute kidney failure, unspecified; E87.0 Hyperosmolality and hypernatremia; N25.81 Secondary hyperparathyroidism of renal origin; I13.0 Hypertensive heart and chronic kidney disease with heart failure and stage 1 through stage 4 chronic kidney disease, or unspecified chronic kidney disease; E44.1 Mild protein-calorie malnutrition; Z68.1 Body mass index [BMI] 19.9 or less, adult; F31.9 Bipolar disorder, unspecified; G40.909 Epilepsy, unspecified, not intractable, without status epilepticus; E03.9 Hypothyroidism, unspecified; G30.9 Alzheimer's disease, unspecified; F02.80 Dementia in other diseases classified elsewhere, unspecified severity, without behavioral disturbance, psychotic disturbance, mood disturbance, and anxiety; Z79.82 Long term (current) use of aspirin; F17.210 Nicotine dependence, cigarettes, uncomplicated; F01.50 Vascular dementia, unspecified severity, without behavioral disturbance, psychotic disturbance, mood disturbance, and anxiety; F22 Delusional disorders; E83.52 Hypercalcemia; D64.9 Anemia, unspecified; Z66 Do not resuscitate; F29 Unspecified psychosis not due to a substance or known physiological condition; N18.32 Chronic kidney disease, stage 3b; Z86.73 Personal history of transient ischemic attack (TIA), and cerebral infarction without residual deficits; Z20.822 Contact with and (suspected) exposure to COVID-19
CPT/HCPCS: 99223-AI; 99232-AI; 99233-AI; 99239; A4314; J0696; J1630; J1644; J2543; J7030; J7070

== ENCOUNTER → 2021-04-12 | Outpatient (CLI) | payer MEDICARE, BC ==
[~2021-04-12] MED LIST changes: +DEPAKOTE ER 25250 MG PO; +LEVOXYL0.05 MG PO; +REMERON 15M15 MG/TA1; +ROCEPHIN VIA1 G/VIAL IM
[2021-04-12 12:52] LABS: BASO # 0.1 K/mm3 (0.0-0.2); BASO % 0.5 % (0.0-2.0); EOS # 0.2 K/mm3 (0.0-0.7); EOS % 2.1 % (0-4.0); GRAN # 8.4 K/mm3 (1.4-6.5); GRAN % 71.6 % (42.2-75.2); HEMATOCRIT 42.3 % (37.0-47.0); HEMOGLOBIN 12.6 g/dl (12.5-16.0); LYMPH # 2.3 K/mm3 (1.2-3.4); LYMPH % 19.5 % (20.0-51.0); MEAN CELL VOLUME 103 fl (80.0-100.0); MEAN CORPUSCULAR HEMOGLOBIN 31 pg (27.0-31.0); MEAN CORPUSCULAR HGB CONC 30 g/dl (33.0-37.0); MEAN PLATELET VOLUME 12.5 fl (7.4-10.4); MONO # 0.6 K/mm3 (0.1-0.6); MONO % 5.3 % (1.7-9.3); PLATELET COUNT 333 K/mm3 (130-400); RED BLOOD COUNT 4.11 M/mm3 (4.10-5.30); REDCELL DISTRIBUTION WIDTH-CV 13.9 % (11.5-14.5)
[2021-04-12 13:45] LABS: CALCIUM 10.6 mg/dL (8.4-10.2); CREATININE, serum 1.1 mg/dL (0.57-1.11); POTASSIUM 5.4 mmol/L (3.5-4.5)
== END ==
LOC: ZCOL.LAB 12:24
PROVIDERS: Family Medicine
DX: N17.9 Acute kidney failure, unspecified (principal)

== ENCOUNTER → 2021-04-19 | Outpatient (CLI) | payer MEDICARE, BC ==
[2021-04-19 16:50] LABS: COLLECTION METHOD CLEAN CATCH
[2021-04-19 17:05] LABS: PH 7 (5-8); SQUAMOUS EPITHELIAL None Seen /hpf (0-10); URINE APPEARANCE Hazy (CLEAR/HAZY); URINE BACTERIA Rare (NONE SEEN); URINE BILIRUBIN Negative (NEGATIVE); URINE BLOOD Negative (NEGATIVE); URINE COLOR Straw (YELLOW); URINE GLUCOSE Negative (NEGATIVE); URINE KETONE Negative (NEGATIVE); URINE LEUKOCYTE ESTERASE 3+ (NEGATIVE); URINE NITRATE Negative (NEGATIVE); URINE PROTEIN(semi-quant) Negative (NEGATIVE); URINE UROBILINOGEN Negative (NEGATIVE); URINE WBC >50 /hpf (0-2)
== END ==
LOC: ZCOL.LAB 16:18
PROVIDERS: Family Medicine
DX: N39.0 Urinary tract infection, site not specified (principal)

== ENCOUNTER 2021-08-13 03:06 | Inpatient (IN) | payer MEDICARE, BC ==
[2021-08-13] VITALS (17 sets, daily range): BP systolic 106–193; BP diastolic 54–156; PULSE 54–77; TEMP 97.7–98.1
[~2021-08-13] VITALS: Ht 162.6 cm; Wt 46.5 kg
[2021-08-13 03:54] LABS: BASO # 0.1 K/mm3 (0.0-0.2); BASO % 0.8 % (0.0-2.0); EOS # 0.5 K/mm3 (0.0-0.7); EOS % 4.1 % (0.0-4.0); GRAN # 9.6 K/mm3 (1.4-6.5); GRAN % 72.6 % (42.2-75.2); HEMATOCRIT 39.9 % (37.0-47.0); HEMOGLOBIN 12.3 g/dl (12.5-16.0); LYMPH # 2.2 K/mm3 (1.2-3.4); LYMPH % 16.7 % (20.0-51.0); MEAN CELL VOLUME 99 fl (80.0-100.0); MEAN CORPUSCULAR HEMOGLOBIN 31 pg (27-31); MEAN CORPUSCULAR HGB CONC 31 g/dl (33.0-37.0); MEAN PLATELET VOLUME 10.4 fl (7.4-10.4); MONO # 0.7 K/mm3 (0.1-0.6); MONO % 5.5 % (1.7-9.3); PLATELET COUNT 274 K/mm3 (130-400); RED BLOOD COUNT 4.03 M/mm3 (4.10-5.30); REDCELL DISTRIBUTION WIDTH-CV 14.1 % (11.5-14.5)
[2021-08-13 04:16] LABS: ALBUMIN 3.8 gm/dL (3.4-4.8); BILIRUBIN,TOTAL 0.2 mg/dL (0.2-1.2); CALCIUM 10.5 mg/dL (8.4-10.2); CREATININE, serum 1.33 mg/dL (0.57-1.11); POTASSIUM 4.6 mmol/L (3.5-4.5); TOTAL PROTEIN 8.1 gm/dL (6.2-8.1)
[2021-08-13] MEDS ORDERED: LITHIUM CA150 MG/CAP PO ×2 (04:28→05:08)
[2021-08-13] MEDS ORDERED: INDERAL 20MG20 MG PO (04:29)
[2021-08-13] MEDS ORDERED: PROCARDIA XL90 MG PO (05:07)
[2021-08-13] MEDS ORDERED: LITHIUM 30300 MG/CAP PO (05:08)
--- NOTE | 2021-08-13 05:45 | NUR ---
Arrived to room 325 via stretcher from ED. Admission assessment complete. Oriented to room/policy. New admit orders initiated. Denies nausea/shortness of breath/pain. VS stable. Denies questions/concerns. Call light in reach. Will monitor.
[2021-08-13 06:00] LABS: INR 1.1 (0.8-3.0); PROTHROMBIN TIME 12.3 SECONDS (9.7-12.8)
--- NOTE | 2021-08-13 09:09 | NUR ---
Patient cleared for Or per called & let ortho know.
--- NOTE | 2021-08-13 09:11 | NUR ---
Pt. resting in bed. MATT hose on right LE. Pedal pulses present bilaterally. Pt. reporting left hip pain. Will administer PRN Tylenol when medication can be given again. Pt. denies other concerns/needs at this time. Call light is within her reach
[2021-08-13 09:26] LABS: COLLECTION METHOD CATHETER
[2021-08-13 09:40] LABS: MUCOUS Present (NOT PRESENT); PH 7 (5-8); SQUAMOUS EPITHELIAL None Seen /hpf (0-10); URINE APPEARANCE Clear (CLEAR/HAZY); URINE BACTERIA None Seen /hpf (NONE SEEN); URINE BILIRUBIN Negative (NEGATIVE); URINE BLOOD Negative (NEGATIVE); URINE COLOR Straw (YELLOW); URINE GLUCOSE Negative (NEGATIVE); URINE KETONE Negative (NEGATIVE); URINE LEUKOCYTE ESTERASE Negative (NEGATIVE); URINE NITRATE Negative (NEGATIVE); URINE PROTEIN(semi-quant) Negative (NEGATIVE); URINE RBC None Seen /hpf (0-2); URINE UROBILINOGEN Negative (NEGATIVE)
--- NOTE | 2021-08-13 13:10 | NUR ---
Major Assembly Inspector contacted Jaqui at 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 Patient's primary care physician is Dr. Bartholomew. Patient's DPOA-HC is her daughter, Irma (ph#[phone]) who lives out of state. SW contacted patient's daughter, Irma to provide update and advised that patient is scheduled to have surgery later today. AMILCAR assisted in facilitating call between RN and Irma to go over patient's consent for surgery. SW faxed clinical updates to Jaqui at [facility]. Discharge Plan: [facility]
--- NOTE | 2021-08-13 13:47 | NUR ---
Patient necklace removed & placed in specimen cup and put in purse. Unable to remove rings, taped
--- NOTE | 2021-08-13 14:43 | NUR ---
Patient to the OR with Karo.
--- NOTE | 2021-08-13 17:18 | NUR ---
Pt. returned from OR s/p left hip fracture reduction with internal fixation. She is awake and alert and oriented. She denies any pain. She denies nausea. Roberts cath remains patent to drainage with clear yellow urine noted. She reports that her legs and feet still feel numb but she is able to feel touch. Pedal pulses palpable bilaterally. Call light is within her reach
--- NOTE | 2021-08-13 18:28 | NUR ---
Pt. awake and lying supine with HOB elevated. She denies any pain or discomfort. She has tolerated clear fluids w/out nausea or vomiting. Dressing x 2 to left hip - these are CDI. Roberts cath remains patent with clear, yellow urine noted. Pt. denies further needs at this time. Call light is within her reach
--- NOTE | 2021-08-13 23:37 | NUR ---
Shift assessment performed. Patient alert and oriented to self. Patient here for left hip fracture. VSS. Incisions CDI. Ice applied. Patient denies any pain at this time. Will continue to monitor.
[2021-08-14] VITALS (7 sets, daily range): BP systolic 121–145; BP diastolic 53–75; PULSE 58–70; TEMP 97.5–98.1
[2021-08-14 07:16] LABS: BASO # 0.1 K/mm3 (0.0-0.2); BASO % 0.4 % (0.0-2.0); EOS # 0.2 K/mm3 (0.0-0.7); EOS % 1.3 % (0.0-4.0); LYMPH # 2.3 K/mm3 (1.2-3.4); LYMPH % 16.9 % (20.0-51.0); MEAN CELL VOLUME 98 fl (80.0-100.0); MEAN CORPUSCULAR HGB CONC 32 g/dl (33.0-37.0); MEAN PLATELET VOLUME 11.1 fl (7.4-10.4); MONO % 7.1 % (1.7-9.3); PLATELET COUNT 214 K/mm3 (130-400); RED BLOOD COUNT 3.31 M/mm3 (4.10-5.30); REDCELL DISTRIBUTION WIDTH-CV 13.9 % (11.5-14.5)
[2021-08-14 07:21] LABS: HEMATOCRIT 32.4 % (37.0-47.0); MEAN CORPUSCULAR HEMOGLOBIN 31 pg (27-31)
[2021-08-14 07:22] LABS: HEMOGLOBIN 10.3 g/dl (12.5-16.0)
--- NOTE | 2021-08-14 08:56 | NUR ---
Patient resting in bed. She did well with breakfast. Denies nausea. Patient does report pain to left hip. Ice to hip. Tylenol as scheduled. Left hip aquacell dressing CDI. Teds & scds Ble. Cms intact. Ivf per orders. Will monitor.
--- NOTE | 2021-08-14 09:35 | NUR ---
Patient up to chair with therapy. She did fairly well.
--- NOTE | 2021-08-14 13:02 | NUR ---
Axle And Frame Mechanic offered prayer and support with patient.
--- NOTE | 2021-08-14 14:15 | NUR ---
PT REFUSED RT TX, WANTS TO SLEEP
--- NOTE | 2021-08-14 15:15 | NUR ---
Patient assisted back to bed. one assist with walker & gaitbelt. She did well with lunch. Alejandra martin, she tolerated well. Iv to Int. Will let her rest
--- NOTE | 2021-08-14 17:58 | NUR ---
Patient resting in bed. Dinner ordered. Up to the bedside commode able to void & have very small BM. Tylenol continues to manage pain.
--- NOTE | 2021-08-14 22:45 | NUR ---
Received report from day shift. Patient in bed, alert to self. Assessment performed. VSS. Incision x 2 on left hip CDI. PM meds administered. Patient resting in bed with call light near.
[2021-08-15] VITALS (7 sets, daily range): BP systolic 95–129; BP diastolic 46–68; PULSE 52–73; TEMP 97–98.1
[2021-08-15 07:42] LABS: HEMOGLOBIN 10.2 g/dl (12.5-16.0)
[2021-08-15 07:44] LABS: HEMATOCRIT 32.8 % (37.0-47.0)
--- NOTE | 2021-08-15 07:54 | NUR ---
Pt assessment complete. Pt assisted to the recliner for breakfast although patient is reluctant to get out of bed. Ambulated with the walker and one assist. She denies any pain at this time, just soreness. Sites to L hip CDI. Breathing is even and unlabored on RA. Chair alarm in place.
--- NOTE | 2021-08-16 02:26 | NUR ---
PATIENT ALERT AND PARTIALLY ORIENTED THROUGHOUT NIGHT. DENYING PAIN. X2 L HIP SITES CDI WITH GAUZE AND TEGADERM. HAS BEEN AMBULATING X1 ASSIST WITH WALKER TO COMMODE. HAD SMALL BM. INT L FA PATENT AND FLUSHED. HS MEDS GIVEN. CURRENTLY RESTING IN BED, CALL LIGHT IN REACH.
[2021-08-16 03:53] VITALS: BP 108/79; PULSE 126; TEMP 97.8
[2021-08-16 06:56] LABS: BASO # 0.1 K/mm3 (0.0-0.2); BASO % 0.3 % (0.0-2.0); EOS # 0.3 K/mm3 (0.0-0.7); EOS % 1.5 % (0.0-4.0); GRAN # 12.9 K/mm3 (1.4-6.5); GRAN % 72.9 % (42.2-75.2); HEMATOCRIT 37.6 % (37.0-47.0); HEMOGLOBIN 11.3 g/dl (12.5-16.0); LYMPH # 3.3 K/mm3 (1.2-3.4); LYMPH % 18.8 % (20.0-51.0); MEAN CORPUSCULAR HEMOGLOBIN 31 pg (27-31); MEAN CORPUSCULAR HGB CONC 30 g/dl (33.0-37.0); MONO # 1.1 K/mm3 (0.1-0.6); MONO % 6.1 % (1.7-9.3); PLATELET COUNT 194 K/mm3 (130-400); RED BLOOD COUNT 3.66 M/mm3 (4.10-5.30); REDCELL DISTRIBUTION WIDTH-CV 14.1 % (11.5-14.5)
[2021-08-16 07:00] LABS: MEAN CELL VOLUME 103 fl (80.0-100.0)
[2021-08-16 07:01] LABS: ALBUMIN 3.2 gm/dL (3.4-4.8); CALCIUM 10.8 mg/dL (8.4-10.2); CREATININE, serum 1.57 mg/dL (0.57-1.11); MAGNESIUM 2.5 mg/dL (1.6-2.6); PHOSPHOROUS 2.9 mg/dL (2.3-4.7); POTASSIUM 4.7 mmol/L (3.5-4.5)
[2021-08-16 07:51] VITALS: BP 95/69; PULSE 70; TEMP 98
--- NOTE | 2021-08-16 08:36 | NUR ---
Patient resting in bed. She did well with breakfast. Seems a little confused this am. Reoriented as needed. high fall risk followed. Int. Left hip dressing CDI. Scds. Will monitor.
[2021-08-16] MEDS ORDERED: LIPITOR 10MG10 MG PO (09:33)
[2021-08-16] MEDS ORDERED: ASPI325T6 PO (09:34)
[2021-08-16] MEDS ORDERED: TYLENOL 325MG325 MG PO (09:35)
[2021-08-16] MEDS ORDERED: OSCAL 500 TAB500 MG PO (09:35)
[2021-08-16] MEDS ORDERED: EUTHYROX75 MCG PO (09:35)
[2021-08-16] MEDS ORDERED: VITAMIN C500 MG PO (09:35)
[2021-08-16] MEDS ORDERED: DUO-KAPS1 CAP PO (09:36)
--- NOTE | 2021-08-16 10:32 | NUR ---
painting worker met with patient to discuss discharge back to [facility] today. Contact made to Jaqui at [facility] and arangement made for the patient to be picked up at 1300 today. Clinical updates and discharge orders faxed to Jaqui. Notified patient and patient's daughter about return to [facility] today. All questions answered. Patient verbalizes that she is worried about her taxes getting done. I let both Jaqui at [facility] and the patient's daughter know of this. Patient present with [facility] form. Education provided and patient's signed original placed in the patient's chart, copy provided back to the patient. Patient and patient's daughter are agreeable to discharge plan of the patient returning back to [facility] under SNF today. Discharge plan: [facility] SNF
--- NOTE | 2021-08-16 13:25 | NUR ---
Patient ready for discharge. Patient dressed in clothing provided & report called to Odette, questions answered to the best of my ability. Int Dc. Patient tolerated lunch. Patient transferred to wheelchair with all belongings. Transporter [facility].
== END 2021-08-16 13:27 | DRG 481 ==
LOC: COL.ER 03:06 → SURG 04:04
PROVIDERS: Emergency Medicine; Internal Medicine; Nurse Practitioner Family; Orthopaedic Surgery; ADMIT Internal Medicine
PROC: 0QH734Z Insertion of Internal Fixation Device into Left Upper Femur, Percutaneous Approach (ICD-10-PCS; principal; 2021-08-13 15:00)
DX: S72.142A Displaced intertrochanteric fracture of left femur, initial encounter for closed fracture (principal); I50.32 Chronic diastolic (congestive) heart failure; I13.0 Hypertensive heart and chronic kidney disease with heart failure and stage 1 through stage 4 chronic kidney disease, or unspecified chronic kidney disease; N25.81 Secondary hyperparathyroidism of renal origin; F31.9 Bipolar disorder, unspecified; E03.9 Hypothyroidism, unspecified; E78.5 Hyperlipidemia, unspecified; J44.9 Chronic obstructive pulmonary disease, unspecified; F17.210 Nicotine dependence, cigarettes, uncomplicated; N18.9 Chronic kidney disease, unspecified; G30.9 Alzheimer's disease, unspecified; F02.80 Dementia in other diseases classified elsewhere, unspecified severity, without behavioral disturbance, psychotic disturbance, mood disturbance, and anxiety; D64.9 Anemia, unspecified; D72.829 Elevated white blood cell count, unspecified; E87.5 Hyperkalemia; E87.8 Other disorders of electrolyte and fluid balance, not elsewhere classified; W01.0XXA Fall on same level from slipping, tripping and stumbling without subsequent striking against object, initial encounter; Y93.89 Activity, other specified; Y92.008 Other place in unspecified non-institutional (private) residence as the place of occurrence of the external cause; Z86.73 Personal history of transient ischemic attack (TIA), and cerebral infarction without residual deficits
CPT/HCPCS: 99223-AI; 99232-AI; 99239; A9284; C1713; J0690; J2250; J2704; J2795; J3010; J7120; J7512

== ENCOUNTER → 2021-12-03 | Outpatient (CLI) | payer MEDICARE, BC ==
[~2021-12-03] MED LIST changes: +ASPI325T6 PO; +DUO-KAPS1 CAP PO; +EUTHYROX75 MCG PO; +INDERAL 20MG20 MG PO; +LIPITOR 10MG10 MG PO; +OSCAL 500 TAB500 MG PO; +VITAMIN C500 MG PO
== END ==
LOC: ZCOL.LAB 11:13
DX: M15.9 Polyosteoarthritis, unspecified (principal); E55.9 Vitamin D deficiency, unspecified; F31.81 Bipolar II disorder; E03.9 Hypothyroidism, unspecified

== ENCOUNTER → 2021-12-10 | Outpatient (CLI) | payer MEDICARE, BC | LOC: ZCOL.LAB 08:27 | DX: F31.81 Bipolar II disorder (principal) ==

== ENCOUNTER → 2021-12-14 | Outpatient (CLI) | payer MEDICARE, BC ==
[2021-12-14 16:00] LABS: COLLECTION METHOD CLEAN CATCH
[2021-12-14 16:09] LABS: PH 7 (5-8); SQUAMOUS EPITHELIAL 0-2 /hpf (0-10); URINE APPEARANCE Hazy (CLEAR/HAZY); URINE BACTERIA Moderate /hpf (NONE SEEN); URINE BLOOD Negative (NEGATIVE); URINE COLOR Straw (YELLOW); URINE GLUCOSE Negative (NEGATIVE); URINE KETONE Negative (NEGATIVE); URINE NITRATE Negative (NEGATIVE); URINE PROTEIN(semi-quant) Negative (NEGATIVE); URINE UROBILINOGEN Negative (NEGATIVE); URINE WBC >50 /hpf (0-2)
== END ==
LOC: ZCOL.LAB 15:52
PROVIDERS: Family Medicine
DX: R30.0 Dysuria (principal)

== ENCOUNTER → 2022-01-12 | Outpatient (CLI) | payer MEDICARE, BC ==
[2022-01-12 21:39] LABS: CALCIUM, IONIZED, SERUM 1.28 mmol/L (1.19-1.41)
== END ==
LOC: ZCOL.LAB 16:46
PROVIDERS: Family Medicine
DX: F31.81 Bipolar II disorder (principal)

== ENCOUNTER → 2022-06-21 | Outpatient (REF) | payer MEDICARE, BC ==
[2022-06-03 17:39] LABS: COLLECTION METHOD CATHETER
[2022-06-03 17:51] LABS: SQUAMOUS EPITHELIAL 0-2 /hpf (0-10); URINE BACTERIA Rare /hpf (NONE SEEN); URINE RBC 0-2 /hpf (0-2); URINE WBC >50 /hpf (0-2)
[2022-06-03 17:52] LABS: URINE APPEARANCE Cloudy (CLEAR/HAZY); URINE BLOOD Negative (NEGATIVE); URINE COLOR Yellow (YELLOW); URINE GLUCOSE Negative (NEGATIVE); URINE KETONE Negative (NEGATIVE); URINE NITRATE Positive (NEGATIVE); URINE PROTEIN(semi-quant) Negative (NEGATIVE); URINE UROBILINOGEN 0.2 (NEGATIVE)
== END ==
LOC: ZCOL.LAB 06-03 17:37
PROVIDERS: Family Medicine
DX: N39.0 Urinary tract infection, site not specified (principal)

== ENCOUNTER 2023-03-14 08:41 | Emergency (ER) | payer MEDICARE, BC ==
[~2023-03-14] VITALS: Ht 162.6 cm; Wt 54.1 kg
[2023-03-14 08:42] VITALS: TEMP 98.3
[2023-03-14 09:21] LABS: COLLECTION METHOD CATHETER
[2023-03-14 09:42] LABS: URINE APPEARANCE Clear (CLEAR/HAZY); URINE BLOOD Negative (NEGATIVE); URINE COLOR Straw (YELLOW); URINE GLUCOSE Negative (NEGATIVE); URINE KETONE Negative (NEGATIVE); URINE NITRATE Negative (NEGATIVE); URINE PROTEIN(semi-quant) Negative (NEGATIVE); URINE UROBILINOGEN 0.2 E.U/dL (0.2-1.0)
[2023-03-14 09:43] LABS: SQUAMOUS EPITHELIAL None Seen /hpf (0-10); URINE BACTERIA Many /hpf (NONE SEEN); URINE RBC 0-2 /hpf (0-2)
[2023-03-14] MEDS ORDERED: VANTIN 200200 MG/TAB PO ×2 (10:39)
[2023-03-14] MEDS ORDERED: CEFTIN500 MG PO ×3 (11:51→12:41)
--- NOTE | 2023-03-14 12:06 | NUR ---
FLASK PUSHER received a telephone call from ED Nurse this morning that pt's daughter was inquiring if [facility] could provide more care for pt at home. Pt came to the ER this morning after falling at home with her walker and experiencing pain. FLASK PUSHER reviewed pt's clinical record and then met with her @ the bedside. Pt is [place] and does not have hearing aids. However, pt was able to anwsered some questions. She stated she fell at home and her daughter,Blanka Gutierrez lives in [place]. She also stated that [facility] was helping her with personal care at home. FLASK PUSHER telephone pt's daughter, Blanka, ph# [phone]. Daughter shared pt lives alone and she receives private duty nursing assistance from [facility] [place], ph# [phone]. Agency visits pt 3x week. [facility] , ph#[phone], also sees pt. They provide PT, OT and HH nursing. She indicated that [facility] will transport pt home if she is not admitted to the hospital. FLASK PUSHER consulted with ED Nurse and MD, and learned pt will not be admitted. However, she will need a 3-day supply of antibiotics @ discharge, with an understanding she will cone picker the rest of her prescription at the pharmacy. Pt has no family in the [place] area nor does she drive. Most of her medications are mail-order thru a [place] pharmacy. FLASK PUSHER called Sandra @ [facility] to asked if agency could assist with picking up pt's medication. Sandra stated they could as long as pt's prescription was sent to [facility] and she will have a nurse pick the medication up for the pt tomorrow. FLASK PUSHER relayed information to ED Nurse. SW Intervention completed. No further needs were noted.
[2023-03-14 12:36] VITALS: BP 183/93; PULSE 93
--- NOTE | 2023-03-15 12:33 | NUR ---
diversified crops i farmworker received referral for patient to discuss if she has a primary care physician and home health. AMILCAR called number on facesheet, P# [phone], which was [facility] Odette informed psychosocial rehabilitation counselor patient left their services on Monday and her daughter would be the best form of contact at P# [phone]. AMILCAR contacted Irma, daughter, whom expressed she has concerns about her mom living alone and spoke with another psychosocial rehabilitation counselor at the house. See AMILCAR Sanders's notes. Irma expressed she established Home Health PT, OT, and nursing with [facility] and private pay nursing through [facility]. Irma expressed she wanted patient to stay at [facility] but move to [place] but to do so patient needed funds to pay for this. Patient refused to sell her house and was unable to pay for LTC anymore. Irma expressed she assisted patient with moving home over the weekend, established home health services, private pay nursing and meals on wheels. Irma expressed patient [facility], Dr. Garcia, and she has a follow up appointment with them on Monday. Irma seemed to be willing to assist with establishing any other services for her mother. Irma provided new phone number for her mother is [phone] but she may not be able to hear as she is hard of hearing. Irma expressed SW could contact her anytime for additional questions. AMILCAR contacted [facility], Ann Marie, whom expressed she is familiar with the family and aware the patient moved home and there are concerns of her being home alone. Ann Marie expressed they have a neuropsychological exam stating patient cannot make her own decisions and her daughter, Irma, is her DPOA. AMILCAR requested these forms, Ann Marie was going to fax them to the hospital. Ann Marie confirmed patient will be seen at their facility on Monday.
--- NOTE | 2023-03-16 13:04 | NUR ---
SW received DPOA-HC and neuropsychological evaluation. Patient's daughter, Irma, is DPOA-HC but does not have financial. Patient does not have capacity to make the decision to live independently. Due to this information, SW made APS report. Intake ID: [id number]
== END 2023-03-14 12:36 | disposition home or self-care (01) ==
LOC: COL.ER 08:41
PROVIDERS: Emergency Medicine
DX: R07.81 Pleurodynia (principal); N39.0 Urinary tract infection, site not specified; F17.210 Nicotine dependence, cigarettes, uncomplicated; Z88.1 Allergy status to other antibiotic agents; Z96.642 Presence of left artificial hip joint; W01.0XXA Fall on same level from slipping, tripping and stumbling without subsequent striking against object, initial encounter; Y93.01 Activity, walking, marching and hiking

== ENCOUNTER → 2023-11-04 | Outpatient (CLI) | payer MEDICARE, BC ==
[~2023-11-04] MED LIST changes: +CEFTIN500 MG PO; +VANTIN 200200 MG/TAB PO
[2023-11-04 09:32] LABS: COLLECTION METHOD CLEAN CATCH
[2023-11-04 09:53] LABS: PH 6.5 (5.0-8.5); URINE BLOOD NEGATIVE (NEGATIVE); URINE COLOR YELLOW (YELLOW); URINE GLUCOSE NEGATIVE (NEGATIVE); URINE KETONE NEGATIVE (NEGATIVE); URINE NITRATE NEGATIVE (NEGATIVE); URINE PROTEIN(semi-quant) NEGATIVE (NEGATIVE); URINE UROBILINOGEN 0.2 E.U/dL (0.2-1.0)
[2023-11-04 09:54] LABS: URINE APPEARANCE CLEAR (CLEAR/HAZY)
== END ==
LOC: ZCOL.LAB 09:23
PROVIDERS: Family Medicine
DX: N39.0 Urinary tract infection, site not specified (principal)

== ENCOUNTER → 2024-04-20 | Outpatient (REF) | payer MEDICARE, BC ==
[2024-04-20 17:19] LABS: URINE APPEARANCE CLEAR (CLEAR/HAZY); URINE BLOOD NEGATIVE (NEGATIVE); URINE COLOR YELLOW (YELLOW); URINE GLUCOSE NEGATIVE (NEGATIVE); URINE KETONE NEGATIVE (NEGATIVE); URINE NITRATE POSITIVE (NEGATIVE); URINE PROTEIN(semi-quant) NEGATIVE (NEGATIVE); URINE UROBILINOGEN 0.2 E.U/dL (0.2-1.0)
[2024-04-22 11:26] LABS: COLLECTION METHOD CLEAN CATCH
== END ==
LOC: COL.LAB 15:38
PROVIDERS: Family Medicine
DX: N39.0 Urinary tract infection, site not specified (principal)